=== PATIENT | male | born 1935 | race Caucasian/White ===

== ENCOUNTER → 2016-06-12 14:20 | Outpatient (CLI) | payer MEDICARE, OTHER ==
[2012-08-23 11:13] VITALS: BMI 23.1
[~2016-06-12 14:20] MED LIST: ALEVE220 MG PO; BAYER CHEWABLE81 MG PO; COZAAR50 MG PO; ELIQUIS5 MG PO; FOLIC ACID1 MG PO; HYDRALAZINE HCL50 MG PO; HYDROCODON-ACE1 EAC7 PO; METHOTREXATE2.5 MG PO; MULTIPLE VITAMI1 TA1 PO; PLAVIX75 MG PO; PRESERVISION AR1 CAP PO; TOPROL XL25 MG PO
[2016-07-10 18:32] VITALS: BMI 24.3
== END | disposition home or self-care (01) ==
LOC: D.CT 14:20
DX: R09.89 Other specified symptoms and signs involving the circulatory and respiratory systems (principal)

== ENCOUNTER 2016-06-19 05:39 | Inpatient (IN) | payer MEDICARE, OTHER ==
[2016-06-19] VITALS (21 sets, daily range): BP systolic 109–172; BP diastolic 41–77; Ht 180.3 cm; Wt 81.1 kg
[~2016-06-19] VITALS: Ht 180.3 cm; Wt 81.1 kg
[2016-06-19] MEDS ORDERED: PLAVIX75 MG PO (08:18)
[2016-06-19] MEDS ORDERED: BAYER CHEWABLE81 MG PO (08:19)
[2016-06-19] MEDS ORDERED: TOPROL XL25 MG PO (08:19)
[2016-06-19] MEDS ORDERED: METHOTREXATE2.5 MG PO (08:20)
[2016-06-19] MEDS ORDERED: MULTIPLE VITAMI1 TA1 PO (08:20)
[2016-06-19] MEDS ORDERED: FOLIC ACID1 MG PO (08:21)
[2016-06-19] MEDS ORDERED: ALEVE220 MG PO (08:23)
[2016-06-19] MEDS ORDERED: HYDROCODON-ACE1 EAC7 PO (08:23)
[2016-06-19 08:40] LABS: HEMATOCRIT 42.4 % (42.0-54.0); HEMOGLOBIN 14.7 g/dL (13.5-17.5); MCH 34.4 pg (26.0-34.0); MCHC 34.7 g/dL (31.0-37.0); MCV 99.3 fL (80.0-100.0); MEAN PLATELET VOLUME 11.9 fL (7.4-10.4); RBC 4.27 10x6/uL (4.20-6.10); WBC 4.2 10x3/uL (4.8-10.8)
[2016-06-19 08:50] LABS: APTT 26.6 SECONDS (22.8-39.4)
[2016-06-19 08:54] LABS: ALBUMIN 3.9 g/dL (3.4-5.0); BILIRUBIN - TOTAL 0.91 mg/dL (0.2-1.3); CALCIUM 9.2 mg/dL (8.5-10.1); CARBON DIOXIDE 30.5 mmol/L (21.0-32.0); CREATININE - SERUM 1.2 mg/dL (0.6-1.3); POTASSIUM - SERUM 4.5 mmol/L (3.5-5.1); PROTEIN - SERUM 7.1 g/dL (6.4-8.2)
[2016-06-19 09:18] LABS: APPEARANCE CLEAR (CLEAR); COLOR YELLOW (YELLOW); GLUCOSE NEGATIVE (NEGATIVE); KETONE NEGATIVE (NEGATIVE); LEUKOCYTE ESTERASE NEGATIVE (NEGATIVE); NITRITE NEGATIVE (NEGATIVE); PROTEIN 1+ mg/dL (NEGATIVE)
[2016-06-19 09:19] LABS: BILIRUBIN NEGATIVE (NEGATIVE); EPITHELIAL CELLS RARE /hpf (0-5); MUCUS <1+ /lpf (NONE SEEN); UROBILINOGEN NORMAL (NORMAL)
--- NOTE | 2016-06-19 09:21 | NUR ---
0915 RT LEG REDDENNED PULSES WITH DOPPLER
--- NOTE | 2016-06-19 09:29 | NUR ---
0929 REPORTED TO SHANTEL SMITH NURSE OF B/P DIFFERENCES AND RT LEG VERY RED PULS WITH DOPPLER. ALSO REPORTED LABS WBC 4.2 PROT 1 PLUS URINE. STATED TO NOTIFY ANESTHESIA. ANESTHESIA CALLED TO REPORT DIFFERENCES IN B/P AND DID NOT TAKE BETA REG THIS AM.
--- NOTE | 2016-06-19 09:34 | NUR ---
[address] VALDEZ OF B/P DIFFERENCES REDDENED LEG AND GOT PULSES WITH DOPPLER AND ALSO REPORTED DID NOT TAKE HIS BETA REG THIS AM. NO NEW ORDERS.
--- NOTE | 2016-06-19 14:56 | NUR ---
PT ARRIVED TO UNIT AT 1418. PT C/O PAIN IN HEEL. KICKED O2 TANK ON WAY FROM OR. HAD NIKKY HOSE AND SCD'S ON AT ARRIVAL. PULSE ON RIGHT DORSALIS NOT PALPABLE OR FOUND WITH DOPPLER. DR SMYTH REQUESTED NIKKY AND SCD'S REMOVED. PT COMPLAINING OF PAIN DIMINISHED AFTER REMOVAL. PT IS ALERT AND CONVERSANT. ORIENTED. HAS CRITICORE ONIEL. HR 68, IRREGULAR. CVP 15, BP 109/41 ARTLINE, 02 100% ON 10L SIMPLEMASK CHANGED OVER TO NC AT 3L AND SATS 98%. RESP 14. TEMP 37.3C. PT HAS DRESSING RIGHT NECK, NO SWELLING NOTED. BIJAL DRAIN AT UPPER CHEST/NECK. DRESSING INTACT, BULB COMPRESSED. HAS LEFT RADIAL ART LINE. HOB AT 35. PLASMALYTE AT 100ML/HR.
--- NOTE | 2016-06-19 16:06 | NUR ---
DR BOOTH CAME BY TO SEE PATIENT. SAYS NOT AFIB. HAS PAC'S AND PVC'S. INSTRUCTS TO MONITOR AND LET KNOW IF ANYTHING CHANGES. PT SYSTOLIC BECAME ELEVATED. RESTARTED NITRO DRIP AT 9ML/HR.
--- NOTE | 2016-06-19 16:23 | NUR ---
Patient Name: AALIYAH CONNORS Admission Status: Elective Accout number: [id number] Admission Date: 06-19-2016 : 1937 Admission Diagnosis: Attending: LEA Current LOS: 1 Anticipated DC Date: 06-20-2016 Planned Disposition: Home Primary Insurance: MEDICARE A & B Is the patient Alert and Oriented? Yes--SEDATED POST PROCEDURE, BUT AROUSES. * How many steps to enter\exit or inside your home? ONE * PCP DR BECKER * Pharm[facility] [address] * Preadmission Environment Home with Family * ADLs Independent * Equipment Cane Other * Other Equipment GRAB BARS IN SHOWER * List name and contact numbers for known caregivers / representatives who currently or will assist patient after discharge: SAMINA CONNORS, SPOUSE, CELL * Community resources currently utilized None * Additional services required to return to the preadmission environment? No * Can the patient safely return to the preadmission environment? Yes * Has this patient been hospitalized within the prior 30 days at any hospital? No Discharge Planning Comments: CM MET WITH PATIENT AND HIS TO ASSESS DC PLAN/NEEDS. ANSWERED ALL QUESTIONS, PT WAS SOMEWHAT SEDATED POST PROCEDURE. PT'S STATED THAT MR CONNORS LIVES AT HOME WITH HER AND THAT HE IS INDEPENDENT IN HIS CARE/ADL'S. STATED THAT HE TYPICALLY AMBULATES WITH NO ASSISTANCE, BUT THAT HE ALSO USES A CANE WHEN WALKING LONG DISTANCES. SPOUSE STATED PT TYPICALLY DRIVES HIMSELF, BUT THAT SHE WILL DRIVE HIM HOME AT DISCHARGE. STATED PT HAS USED HH SERVICES IN 2010 AFTER A KNEE SURGERY, BUT SHE DOES NOT FEEL PATIENT WILL REQUIRE ANY HH SERVICES AT DISCHARGE. SHE VOICED NO NEED FOR ANY ADDITIONAL DME AT DISCHARGE. SHE STATED THAT PT'S HOME IS SAFE PLACE AND PLAN IS FOR PATIENT TO RETURN HOME AT DISCHARGE. SPOUSE VOICED NO DISCHARGE NEEDS AT THIS TIME. CM WILL FOLLOW AND ASSIST WITH ANY DC NEEDS THEY ARISE. Dairy Cattle Farmer: Janelle Randolph RN, CM
--- NOTE | 2016-06-19 17:30 | NUR ---
PT ATE 100% DINNER. NO COMPLAINTS VOICED. BROUGHT UP HIS PARTIAL PLATE. CALL LIGHT IN REACH.
--- NOTE | 2016-06-19 18:00 | NUR ---
PT HAS ORDERS FOR CONSULT FOR DR BECKER. NO NOTATION OF CONFIRMATION. ANSWERING SERVICE CALLED. DR LUJAN SWITCH FOREMAN TODAY. PAGED.
--- NOTE | 2016-06-19 18:15 | NUR ---
PT SYSTOLIC NOW IN 120'S. NITRO WEANED OFF.
--- NOTE | 2016-06-19 19:40 | NUR ---
ASSESSMENT COMPLETED. SEE ASSESSMENT FLOWSHEET. AWAKENS EASILY TO VOICE. ORIENTED X4. GOULD WELL. RT MIMS OF LEG WITH SOME REDNESS AND SCABS NOTED. LEFT RADIAL A-LINE INTACT W/ FELXION BOARD. CAP REFILL <3 SECONDS. DENIES ANY PAIN. RT NECK INCISION C/D/I WITH BROWN SQUARE DRSG. RT UPPER CHEST AREA BIJAL DRAIN SITE LOCATION C/D/I. BIJAL WITH MINIMAL BLOODY DRAINAGE-COMPRESSED. SINUS BRADYCARDIA ON THE MONITOR WITH PAC/PVC'S NOTED. DAY SHIFT RN REPORTED NO SCD' OR TEDS DUE TO NOT BEING ABLE TO FIND A PALPABLE PULSE TO RT PEDAL AREA EARLIER. WILL MONITOR.
--- NOTE | 2016-06-19 20:50 | NUR ---
NEURO ASSESSMENT COMPLETED. NO CHANGES NOTED. AWAKENS WITHOUT DIFFICULTY.
--- NOTE | 2016-06-19 21:46 | NUR ---
NEW ICE FOR ICE PACK GIVEN AND NEW CUP OF WATER PER RQUEST. DENIES TO BE TURNED IN BED. I.S. COMPLETED UP TO 2,000ML. WILL CONTINUE TO MONITOR.
--- NOTE | 2016-06-19 22:00 | NUR ---
INCREASED NITRO TO 8ML/HR TO KEEP SBP <140MMHG. WILL MONITOR.
--- NOTE | 2016-06-19 23:17 | NUR ---
REASSESSMENT COMPLETED. SEE ASSESSMENT FLOWSHEET. NEURO INTACT. WILL MONITOR.
[2016-06-20] VITALS (58 sets, daily range): BP systolic 98–159; BP diastolic 44–78
--- NOTE | 2016-06-20 01:20 | NUR ---
IV FLUIDS DECREASED TO 30ML/HR ORDERED. INCREASED NITRO TO 15 ML/HR TO KEEP SBP <140. WILL MONITOR.
--- NOTE | 2016-06-20 01:56 | NUR ---
NEURO CHECK COMPLETED. NO NEURO DEFICITS. REPORTIGN SORE PAIN TO RT NECK. WHEN OFFERED, DOES WANT ALEVE TABLET. TABLET GIVEN. DECREASED NITRO TO 13ML/HR. WILL MONITOR.
--- NOTE | 2016-06-20 03:20 | NUR ---
REASSESSMENT COMPLETED. SEE ASSESSMENT FLOWSHEET. 12-LEAD EKG DONE TO DETERMINE IF IN JUNCTIONAL RHYTHM OR ANY HEART BLOCK. NOT NOTED. AWAKE, ALERT, ORIENTED X4. GOULD WELL. EMPTIED BIJAL DRAIN-10ML OF BLOODY DRAINAGE REMOVED. WILL MONITOR.
--- NOTE | 2016-06-20 04:38 | NUR ---
INCREASED NITRO TO 25ML/HR. WILL MONITOR.
--- NOTE | 2016-06-20 06:25 | NUR ---
BIJAL DRAIN REMOVED PER EDIN MARIE. NITRO GTT TITRATED DOWN. TOLERATED WELL. WILL MONITOR.
--- NOTE | 2016-06-20 06:35 | NUR ---
DR. SMYTH INFORMED OF 12-LEAD EKG DONE DURING THE NIGHT. ORDERS TO START REMOVING LINES THIS AM. WILL MONITOR.
--- NOTE | 2016-06-20 11:55 | OP ---
PATIENT NAME: AALIYAH CONNORS MEDICAL RECORD: [id number] :37 [facility] ADMISSION DATE:06/19/16 SURGEON: VINICIUS SMYTH MD DATE OF OPERATION: 06/19/2016 SURGEON: Vinicius Smyth MD ANESTHESIA: General endotracheal, Dr. Burrows. OPERATION PERFORMED: Right carotid endarterectomy with patch angioplasty. PREOPERATIVE DIAGNOSIS: Critical right internal carotid artery stenosis. POSTOPERATIVE DIAGNOSIS: Critical right internal carotid artery stenosis. INDICATION FOR OPERATION: Critical symptomatic right internal carotid artery stenosis. FINDINGS AT OPERATION: Severe right internal carotid artery stenosis with ulcerative plaque as well as soft clot. There were no EEG changes with clamping or unclamping of the carotid artery. ESTIMATED BLOOD LOSS: Less than 100 cc. DESCRIPTION OF PROCEDURE: After informed consent, adequate preoperative medication evaluation, the patient was brought to the operating room, placed on the table in the supine position. After induction of general endotracheal anesthesia and application of appropriate monitoring devices, the chest, neck, abdomen, and both legs were prepped and draped in a sterile field, utilizing Betadine scrub, alcohol, and Betadine solution. Betadine-impregnated drape was also used. An oblique incision was made in the skin crease. Dissection carried down the fascia. Hemostasis maintained with electrocautery. The facial vein was identified and divided. Utilizing sharp dissection, the common carotid, internal and external carotid arteries were dissected free from surrounding structures, protecting the neurological structures. The patient was given a calculated dose of heparin and after 3 minutes, clamps were applied. After 2 minutes, no EEG changes. The arteriotomy was made and extended with Dickey scissors. Artery underwent endarterectomy sharply. Artery underwent extensive debridement and irrigation. Utilizing a vascular patch and running 7-0 Prolene suture, the arteriotomy was closed with patch angioplasty technique. All maneuvers to remove trapped air were performed. The clamps were removed sequentially. There were no EEG changes. The patient was given a calculated dose of protamine to reverse the heparin. Hemostasis was achieved. A #7 Alex-Omalley drain was left in the depth of wound and brought through the base of the neck. Neck was again irrigated. Instrument count and sponge count were correct times 2. Neck was closed in layers utilizing 3-0 Vicryl on the platysma, 5-0 subcuticular Monocryl on the skin. Sterile dressings were applied and the instrument count and sponge counts were correct times 2. The patient was transferred to cardiovascular recovery in satisfactory condition. TRANSINT:[id number] Voice Confirmation ID: [id number] DOCUMENT ID: [id number] OPERATIVE REPORT [id number] AALIYAH CONNORS EDWARD MD at 1155 CC: [id number] DICTATION DATE: 06/19/16 1416 SPICE ROOM WORKER: 06/19/162024 [place] [address]
--- NOTE | 2016-06-20 11:55 | HP ---
PATIENT: AALIYAH CONNORS MEDICAL RECORD: [id number] ACCOUNT: [id number] [facility] ADMISSION DATE: 06/19/16 HISTORY AND PHYSICAL EXAMINATION AALIYAH Fraga (80yo, M) ID# [id number]. Date/Time06/17/2016 01:[id number] 1935Service Dept.[facility]_[place] [facility] ClinicProviderEDILEANA SMYTH MDInsuranceMed Primary: [place]) Insurance # : [id number] Referring Provider Name : TERRIE BECKER Employer Name : RETIRED Med Secondary: [employer] (MEDICARE SUPPLEMENT) Insurance # : [id number] Referring Provider Name : TERRIE BECKER Employer Name : RETIRED Prescription: ARGSDIR - Member is eligible. Chief Complaint Carotid stenosis Patient's Care Team Referring Provider (): TERRIE BECKER: [address] [place] [phone], , Other: LIUDMILA YODER MD: [address] [place] [address], , Patient's Pharmacies [facility] (ERX): [address] [place] [id number], , Vitals BP:160/80 sitting R arm 06/17/2016 01:07 pm 172/82 sitting L arm 06/17/2016 01:08 pmBP Cuff Size:adult 06/17/2016 01:07 pm adult 06/17/2016 01:08 pmHR:82, irreg 06/17/2016 01:09 pmHt:5 ft 11 in 06/17/2016 01:02 pmNotes:on Tuesday 06/06 woke up dizzy and had difficulty walking and getting around. Ended up having a fall Saturday 06/[address] Yoder, and after exam proceeded to CTA carotids. S florencio then he has had a couple of "weak spells" during which he feels weak, dizzy and groggy. 06/17/2016 01:13 pmAllergies Reviewed Allergies CRESTORLIPITORPRAVASTATINMedications Reviewed Medications Aleve every am and pm, start filledAtrium Health Mountain Islandmarialuisa Mcfaddenaspirin 81 mg tablet,delayed release Take 1 tablet(s) every day by oral route., start filledKatmarialuisa WilsonFluzone High-Dose (PF) 180 mcg/0.5 mL intramuscular syringe ADM 0.5ML IM UTD105/05/15 filledsurescriptsfolic acid 1 mg hpfhpy97/16/17 filledArgBlueSpace Health SystemsmetHOTREXate sodium 2.5 mg pvwkco76/09/17 filledArgKLD Energy Technologies Systemsmetoprolol succinate ER 25 mg tablet,extended release 24 hr Take 1 tablet(s) every day by oral route.03/20/16 filledArgus Health Tonqzbclzhaprpjbomf44/14/17 enteredE[facility] WilsonPreserVision AREDS06/17/16 enteredE[facility] BogdanPrevnar 13 (PF) 0.5 mL intramuscular aqtoetj94/23/15 filledsurescriptsProblems Reviewed Problems Aortic valve disorder 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 Carotid artery stenosis - Onset: 06/16/2016, Bilateral Family History Discussed Family History HISTORY AND PHYSICAL [id number] AALIYAH CONNORS Non-contributory.Father- (onset age: 32) - WWIIMother- Malignant neoplastic disease ( age: 88)Social History Discussed Social History Cardiology Family history of heart disease?: N Smoking Status: Former smoker Non-smoker High Cholesterol: Y High blood pressure: Y Exercise level: None Diabetes: N Alcohol intake: Occasional Occupation: retired Marital status: Is blood transfusion acceptable in an emergency?: Y Tobacco-years of use: 25 Surgical History Reviewed Surgical History CABG - 08/22/2012 - CABG/AVR W TISSUE VALVE Shoulder arthroscopy with rotator cuff repair - 04/28/2012 Other - 04/2006 LEFT SHOULDER SURGERY, CATARACT SURGERY, LEFT KNEE REPLACEMENT Past Medical History Discussed Past Medical History Blood Clots: Y Heart Disease: Y Heart Murmur: Y High Blood Pressure: Y Hyperlipidemia: Y Hypertension: Y Pain in legs when walking: Y Swelling of Ankles, Feet or Hands: Y Valve disease: Y - AVR 08/22/12 Notes: CAROTID ARTERY STENOSIS Documents for Discussion N/A Screening None recorded. HPI Cerebral Vascular Disease Reported by patient. Quality: weakness; dizziness; staggering gait bilateral Severity: mild loss of strength; interference with daily activities; moderate Duration: started 12 days ago Onset/Timing: intermittent; weekly Aggravating Factors: activity Associated Symptoms: palpitations; syncope recent episodes of dizziness and disorientation ROS Patient reports exercise intolerance but reports no fever, no night sweats, no significant weight gain, and no significant weight loss. He reports known heart murmur (PROSTHETIC) but reports no chest pain, no arm pain on exertion, no HISTORY AND PHYSICAL [id number] AALIYAH CONNORS shortness of breath when walking, no shortness of breath when lying down, and no palpitations. He reports arthralgias/joint pain but reports no muscle aches, no muscle weakness, no back pain, and no swelling in the extremities. He reports weakness and dizziness but reports no loss of consciousness, no numbness, no seizures, and no headaches. He reports no dry eyes, no irritation, and no vision change. He reports no difficulty hearing and no ear pain. He reports no frequent nosebleeds and no nose/sinus problems. He reports no sore throat, no bleeding gums, no snoring, no dry mouth, no mouth ulcers, no oral abnormalities, and no teeth pro b lems. He reports no cough, no wheezing, no shortness of breath, and no coughing up blood. He reports no abdominal pain, no vomiting, normal appetite, no diarrhea, not vomiting blood, no nausea, and no constipation. He reports no incontinence, no difficult y urinating, no hematuria, and no increased frequency. He reports no abnormal mole, no jaundice, and no rashes. He reports no depression, no sleep disturbances, feeling safe in relationship, and no alcohol abuse. He reports no fatigue. He reports no swolle n glands and no bruising. He reports no runny nose, no sinus pressure, no itching, no hives, and no frequent sneezing. ROS as noted in the HPI Physical Exam Patient is a 80-year-old male. Constitutional: General Appearance well nourished and developed and healthy-appearing. Level of Distress NAD. Ambulation ambulating normally. Cardiovascular: Apical Impulse not displaced or no thrill. Heart Auscultation normal s1 and s2, no rubs or gallops, and RRR and murmur (PROSTH). Arterial Pulses no abdominal aorta bruits, femoral bruits, or popliteal bruits and 2+ bilateral, carotid 2+ bilateral, femoral 2+ bilateral, popliteal 2+ bilateral, and dorsalis pedis 2+ bilateral. Edema no edema or varicosities. Lungs: Repiratory Effort no dyspnea. Percussion no hyperresonance or dullness or flatness. Auscultation no wheezing, rhonchi, or rales / crackles and breathing sounds normal, good air movement, and CTA except as noted. Abdomen: Bowl Sounds normal. Inspection and Palpation no tend erness, guarding, masses, or rebound tenderness and soft and non-distended. Liver non-tender and no hepatomegaly. Spleen non-tender and no splenomegaly. Hernia none palpable. Ears, Nose, Throat: Hearing grossly normal hearing. Nose no external nose lesion . Lips, Teeth, and Gums no mouth or lip ulcers. Oropharynx: moist mucous membranes. Musculoskeletal System: Gait And Stance normal gait and stance. Digits and Nails normal nails and no cyanosis. Joints, Bones, and Muscles limited ROM. Neurologic: Cranial Nerves grossly intact. Reflexes DTRs 2+ bilaterally throughout. Sensation grossly intact. Lymph Nodes: Lymph Nodes no cervical LAD, supraclavicular LAD, axillary LAD, or inguinal LAD. Eyes: Lids and Conjunctivae no discharge or pallor and non-injected. Pupils PERRLA. Cornea grossly intact. EOM EOMI. Lens clear. Sclerae non-icteric. Neck: Neck no masses or enlarged lymph nodes and supple, trachea midline, and carotid bruits (can not tell the difference between a transmitted cardiac murmur or bilateral carotid bruits). Thyroid no enlargement or nodules and non-tender. HISTORY AND PHYSICAL [id number] AALIYAH CONNORS Skin: Inspection and Palpation no rash, lesions, ulcers, jaundice, or abnormal nevi. Assessment / Plan severe bilateral carotid artery stenosis right greater than the left 1. Carotid artery stenosis - Bilateral I65.23: Occlusion and stenosis of bilateral carotid arteries CAROTID STENOSIS: CARE INSTRUCTIONS Discussion Notes I have discussed his disease process with him and his in detail as well as the alternative methods of treatment. We discussed right carotid endarterectomy including the expected benefits and risk which included bleeding infection stroke and . They understand all of the above and wished to proceed with planned procedure. Return to Office Joseluis Smyth MD for Surgery at [facility] SCHEDULE on 06/19/2016 at 08:30 AM Joseluis Smyth MD for Office Visit [address] [facility] on 12/31/2016 at 09:15 AM to see Joseluis Smyth MD at [facility] on or around 01/01/2017 JOSELUIS SMYTH MD at 1155 CC: [id number] DICTATION DATE: 06/17/16 1315 BRAND ATTENDANT: DM 06/18/16 1430 ADM IN [place] [id number] [place] [address]
--- NOTE | 2016-06-20 15:05 | NUR ---
FAMILY AT BEDSIDE. NO CURRENT NEEDS.
--- NOTE | 2016-06-20 15:43 | NUR ---
DR. SMYTH NOTIFIED OF PT'S CONCERN THAT HIS SPEECH IS SLURRED. NO SLURRING NOTED. NEURO EXAM UNCHANGED SINCE 1500. TRACHEA MIDLINE. TONGUE MIDLINE. NO NEW ORDERS.
--- NOTE | 2016-06-20 19:00 | NUR ---
AMBULATED SELF FROM CHAIR TO BED WITHOUT DIFFICULTIES DURING SHIFT CHANGE REPORT.
--- NOTE | 2016-06-20 19:30 | NUR ---
SHIFT ASSESSMENT COMPLETED. SEE ASSESSMENT FLOWSHEET. RT NECK DRSG COMING OFF. PLACED TEAGDERM ON TOP OF BROWN DRSG. SITE WNL WITHOUT SWELLING. ON ROOM AIR. NSR WITH FREQUENT PVC'S NOTED. HR IN THE 70'S. RT UPPER CHEST DRSG TO OLD BIJAL DRAIN SITE C/D/I. ABDOMEN SOFT AND ACTIVE BOWEL SOUNDS. NOT YET VOIDED SINCE ENGLE CATHETER D/C'ED THIS AM. ENCOURAGED TO TRY IN A HOUR TO URINATE. RT LOWER LEG WITH SCABS AND SLIGHTLY RED IN COLOR. TRACE EDEMA TO LE'S BILATERALLY. HANDS NOTED TO HAVE A SLIGHT SKELETAL DEFORMITY BUT FUNCTIONAL. HAND GRASPS STRONG AND EQUAL BILATERALLY. DORSI-PLANTAR FLEXION STRONG/EQUAL. PUPILS PERRLA. SMILE SYMMETRICAL. SEE NEURO CHECKS. WILL CONTINUE TO MONITOR.
--- NOTE | 2016-06-20 21:10 | NUR ---
ENCOURAGED TO TRY TO VOID SINCE NOT VOIDING SINCE CATHETER OUT. WITH STANDING, VOIDED 350ML OF CLEAR, MIO URINE. BACK TO BED. WILL MONITOR B/P CLOSELY FOR POSSIBLE RESTART OF NITRO. WILL MONITOR.
--- NOTE | 2016-06-20 22:14 | NUR ---
NITRO GTT STARTED TO KEEP SBP <140MMHG. NITRO STARTED AT 5ML/HR.
--- NOTE | 2016-06-20 23:20 | NUR ---
NITRO INCREASED TO 7ML/HR TO KEEP SBP <140MMHG. WILL MONITOR.
--- NOTE | 2016-06-20 23:34 | NUR ---
REASSESSMENT COMPLETED WHILE AWAKE. ASKING FOR BLANKET ON HIM, OBLIGED. NO FEVER NOTED. NO ACUTE CHANGES IN ASSESSMENT, SEE FLOWSHEET.
[2016-06-21] VITALS (29 sets, daily range): BP systolic 107–159; BP diastolic 56–91
--- NOTE | 2016-06-21 01:00 | NUR ---
NITRO GTT TURNED OFF FOR SBP 110. WILL MONITOR.
--- NOTE | 2016-06-21 01:32 | NUR ---
IV PROTONIX GIVEN. TURNED SELF TO RT SIDE. CHANGED NIBP'S TO TAKE EVERY HOUR NOW. REPORTED HE NOTICED HIS BLOOD PRESSURE GETTING LOWER. INFORMED MEDICATION TO LOWER B/P HAS BEEN TURNED OFF. DENIES NEEDS. WILL MONITOR.
--- NOTE | 2016-06-21 02:40 | NUR ---
EYES CLOSED. LAYING ON RT SIDE. NSR WITH FREQUENT PVC'S ON THE MONITOR. NO ACUTE DISTRESS NOTED. WILL MONITOR.
--- NOTE | 2016-06-21 03:50 | NUR ---
REASSESSMENT COMPLETED. SEE ASSESSMENT. RT NARE NOTED TO HAVE A SCANT AMOUNT OF BLOODY DRAINAGE. CLEANSED NARE AND TISSUES GIVEN. NO NEURO DEFICITS. DENIES PAIN. WILL CONTINUE TO MONITOR.
--- NOTE | 2016-06-21 05:30 | NUR ---
ASSISTED UP TO BEDSIDE CHAIR AFTER URINATING INTO URINAL. WILL MONITOR.
--- NOTE | 2016-06-21 10:50 | CN ---
PATIENT NAME:AALIYAH CONNORS MEDICAL RECORD: [id number] : 37 LOCATION:[facility] ADMIT DATE: 06/19/16 ACCOUNT: [id number] CONSULTING PHYSICIAN: DEBBY DE LA GARZA MD REFERRING PHYSICIAN: JOSELUIS SMYTH MD DATE OF CONSULTATION: 06/20/2016 DATE OF ADMISSION: 06/18/2016 REASON FOR CONSULTATION: Medical management. HISTORY OF PRESENT ILLNESS: The patient is a 80-year-old gentleman who has recently experienced some dizziness on June 06. He stated this started on Wednesday and continued on Wednesday. He went to see Dr. Yoder who had referred him for a carotid Doppler. The patient was found to have stenosis of the right carotid artery. He was therefore referred to Dr. Smyth. Dr. Smyth admitted the patient for right carotid endarterectomy. PAST MEDICAL HISTORY: Significant that he has had a quadruple bypass by Dr. Milian 16 years ago. He has also had aortic valve replaced by Dr. Smyth in the recent past. His history is significant that he has had rheumatoid arthritis, also has had hyperlipidemia, but is intolerant of statins. FAMILY HISTORY: His father of an MVA. Mother of female cancer at age 77. ALLERGIES: HE IS ALLERGIC TO ATORVASTATIN, LIPITOR, CRESTOR AND PRAVACHOL. MEDICATIONS: Include methotrexate 2.5 seven tablets every , also is on Plavix 75 mg once a day, metoprolol succinate 25 mg p.o. daily, hydrocodone 5/325 one every 4 hours p.r.n. severe pain, aspirin 81 mg once a day, tramadol 50 mg 1 every 6 hours p.r.n. severe pain and folic acid 1 mg everyday. HABITS: None. REVIEW OF SYSTEMS: CONSTITUTIONAL: He denies any headaches, seizures, or syncope. Denies change in visual or auditory acuity. PULMONARY: He denies any shortness of breath, cough, or congestion, history of TB, asthma, or bronchitis. CARDIOVASCULAR: He is having no chest pain, palpitation, PND, or orthopnea. GASTROINTESTINAL: No chronic nausea, vomiting, melena, or hematochezia. GENITOURINARY: No urgency, frequency, or dysuria. PHYSICAL EXAMINATION: GENERAL: The patient is sitting up in a chair in the ICU postop day #1 from right carotid endarterectomy. The patient is doing well. He is alert and oriented times 3. Cranial nerves II through XII are intact. NECK: Supple. There is no adenopathy. HEART: Has a regular rhythm. No murmurs, gallops, or rubs. LUNGS: Clear. ABDOMEN: Soft, bowel sounds positive. No organomegaly. EXTREMITIES: Lower extremities have no edema. LABORATORY DATA: Patient preoperatively had a white count of 4.2, his CONSULT REPORT [id number] DORYAALIYAH Karma hemoglobin is 14.7, hematocrit is 42.4 and his platelets were 139. His potassium was 4.5, his chloride was 101. His sodium was 138, BUN 17 and creatinine is 1.2. Urinalysis was unremarkable. INR was 1.0. ASSESSMENT: 1. Status post right carotid endarterectomy, doing well. 2. History of coronary artery bypass grafting some 16 years ago, status post aortic valve replacement, history of hyperlipidemia and rheumatoid arthritis. PLAN: The patient appears to be progressing well. We will continue to follow along with you. Thanks for the consultation. TRANSINT:[id number] Voice Confirmation ID: [id number] DOCUMENT ID: [id number] DEBBY DE LA GARZA MD at 1050 CC: [id number] DICTATION DATE: 06/20/16 1049 TERRAZZO ROLLER: 06/20/16 1326 ADM IN [place] [id number] [place] [id number]
--- NOTE | 2016-06-21 12:20 | NUR ---
DR. SMYTH AT BEDSIDE DISCUSSING DC HOME.
--- NOTE | 2016-06-21 12:49 | NUR ---
LEFT SUBCLAVIAN CVL DC'D CATH FULLY INTACT. MANUAL PRESSURE APPLIED TIMES 5 MINUTES. CLEAR DRESSING APPLIED. PT PREPARING FOR DC HOME.
--- NOTE | 2016-06-21 13:30 | NUR ---
DC INSTRUCTIONS REVIEWED WITH PT AND . NO CURRENT QUESTIONS. PT DC'D HOME WITH VIA WHEELCHAIR.
== END 2016-06-21 13:30 | disposition home or self-care (01) | DRG 39 ==
LOC: D.SDCHOLD 05:39 → D.CVICU 07:28 → D.SDCHOLD 07:28 → D.CVICU 13:23
PROVIDERS: ADMIT Internal Medicine Cardiovascular Disease
PROC: 03UK0JZ Supplement Right Internal Carotid Artery with Synthetic Substitute, Open Approach (ICD-10-PCS; 2016-06-19)
PROC: 03CK0ZZ Extirpation of Matter from Right Internal Carotid Artery, Open Approach (ICD-10-PCS; principal; 2016-06-19 09:30)
DX: I65.23 Occlusion and stenosis of bilateral carotid arteries (principal); M06.9 Rheumatoid arthritis, unspecified; I10 Essential (primary) hypertension; I49.1 Atrial premature depolarization; E78.5 Hyperlipidemia, unspecified

== ENCOUNTER → 2016-07-09 15:01 | Outpatient (CLI) | payer MEDICARE, OTHER ==
[2016-06-19 17:25] VITALS: BMI 24.9
== END | disposition home or self-care (01) ==
LOC: D.CT 15:01
DX: I99.8 Other disorder of circulatory system (principal)

== ENCOUNTER 2016-07-10 08:12 | Inpatient (IN) | payer MEDICARE, OTHER ==
[~2016-07-10] VITALS: Ht 180.3 cm; Wt 80.7 kg
[2016-07-10] VITALS (44 sets, daily range): BP systolic 81–146; BP diastolic 38–80; Ht 180.3 cm; Wt 80.7 kg
--- NOTE | ~2016-07-10 | HEMODYNAMI ---
PATIENT:AALIYAH CONNORS MEDICAL RECORD: [id number] : 37 [facility] ADMISSION DATE: 07/10/16 Generatedon:07/14/201613:22 Patient name: AALIYAH CONNORS Patient #: [id number] SSN: D OB: 1935 Date of study: 07/14/2016 Page: Of Hemodynamic Procedure Report Patient Data Patient Demographics Procedure consent was obtained First Name: AALIYAH Gender: Male Last Name: DORY : 1935 Middle Initial: C Age: 80 year(s) Patient #: [id number] Race: Unknown Additional ID: [id number] Contact details [address]: [address] [place] [address] [address] State: [place] City: [place] Zip code: [address] Admission Admission Data Admission Date: 07/10/2016 Admission Time: 8:12 Room #: [facility] Procedure Procedure Types Cath Procedure Peripheral Cath Diagnostic Procedure Miscellaneous Procedure Description Procedure Date Procedure Date: 07/14/2016 Procedure Start Time: 11:04 Procedure Staff Name Function Damion Holder MD Performing Physician Conchita Meneses RT Scrub Mona Heller RN Nurse Marcio Meza RT Monitor Ayush Palafox MD Additional personnel Procedure Data Cath Procedure Fluoroscopy Diagnostic fluoroscopy Total fluoroscopy Time: time: 26.5 min 26.5 min Diagnostic fluoroscopy Total fluoroscopy dose: 116 dose: 116 mGy mGy Contrast Material Contrast Material Type Amount (ml) Isovue 300 45 Entry Location Entry Primary Successful Side Size (Fr) Upsize Upsize Entry Closure S uccessful Closure Location 1 (Fr) 2 (Fr) Remarks Device Remarks Femoral Left 7 Fr artery Mid-Length Diagnostic catheters Device Type Used For End Catheter Placement Diagnostic 5Fr IMT Catheter Procedure Medications Medication Administration Route Dosage Heparin Flush Bag added to field 2 bags (1000units/500ml NS) Lidocaine 1% added to field 20 Heparin Bolus I.V. 4000 units Heparin Bolus I.V. 2000 units Hemodynamics Rest Heart Rate: 79 (bpm) Snapshots Pre Cath Intra NCS Post Cath Vital Signs Time Heart Resp SPO2 NIBP (mmHg) Rhythm Pain Sedation Rate (ipm) (%) Status Level (bpm) 10:53:34 82 14 99 156/89(143) NSR 0 (11) 10(A) , No pain 10:58:33 77 20 100 Measuring NSR 0 (11) 10(A) , No pain 10:58:37 77 20 100 167/116(135) NSR 0 (11) 10(A) , No pain 11:02:55 76 21 100 131/77(109) NSR 0 (11) 10(A) , No pain 11:07:03 78 29 99 147/98(121) NSR 0 (11) 10(A) , No pain 11:11:29 75 16 98 105/58(75) NSR 0 (11) 10(A) , No pain 11:15:33 77 19 98 101/55(73) NSR 0 (11) 10(A) , No pain 11:19:43 78 19 98 102/51(71) NSR 0 (11) 10(A) , No pain 11:23:55 85 18 98 72/45(63) NSR 0 (11) 10(A) , No pain 11:28:54 73 16 97 Measuring NSR 0 (11) 10(A) , No pain 11:28:58 83 17 97 94/44(64) NSR 0 (11) 10(A) , No pain 11:33:06 81 18 97 93/50(62) NSR 0 (11) 10(A) , No pain 11:37:05 76 19 97 99/74(85) NSR 0 (11) 10(A) , No pain 11:41:15 80 16 97 101/48(67) NSR 0 (11) 10(A) , No pain 11:45:21 76 17 98 103/63(81) NSR 0 (11) 10(A) , No pain 11:49:31 73 17 97 91/53(66) NSR 0 (11) 10(A) , No pain 11:53:35 76 16 97 87/53(70) NSR 0 (11) 10(A) , No pain 11:57:36 74 16 97 95/57(76) NSR 0 (11) 10(A) , No pain 12:01:42 75 16 97 90/51(68) NSR 0 (11) 10(A) , No pain 12:05:46 77 16 97 86/54(64) NSR 0 (11) 10(A) , No pain 12:10:35 75 16 97 100/56(77) NSR 0 (11) 10(A) , No pain 12:14:45 75 16 97 90/51(66) NSR 0 (11) 10(A) , No pain 12:19:34 73 15 97 96/59(78) NSR 0 (11) 10(A) , No pain 12:23:41 75 15 97 88/52(66) NSR 0 (11) 10(A) , No pain 12:27:45 75 16 97 85/52(62) NSR 0 (11) 10(A) , No pain 12:31:49 75 17 97 87/48(61) NSR 0 (11) 10(A) , No pain 12:35:50 70 15 98 106/60(82) NSR 0 (11) 10(A) , No pain 12:40:00 72 13 97 94/52(74) NSR 0 (11) 10(A) , No pain 12:44:06 69 16 97 86/52(64) NSR 0 (11) 10(A) , No pain 12:48:10 73 15 97 88/49(67) NSR 0 (11) 10(A) , No pain 12:52:13 72 16 97 85/53(67) NSR 0 (11) 10(A) , No pain 12:56:15 70 13 98 99/54(74) NSR 0 (11) 10(A) , No pain 13:00:23 71 15 97 87/53(66) NSR 0 (11) 10(A) , No pain 13:04:27 72 16 97 89/52(65) NSR 0 (11) 10(A) , No pain 13:08:30 72 15 97 87/54(64) NSR 0 (11) 10(A) , No pain 13:12:34 71 13 97 90/54(71) NSR 0 (11) 10(A) , No pain 13:16:40 71 15 97 87/50(66) NSR 0 (11) 10(A) , No pain 13:18:53 71 17 100 89/54(64) NSR 0 (11) 10(A) , No pain Medications Time Medication Route Dose Verified Delivered Reason Notes Effectiveness by by 10:57:01 Heparin Flush added 2 Mona Mona used for Bag to bags King BOUCHRA Heller RN procedure (1000units/500ml field NS) 10:57:11 Lidocaine 1% added 20ml Mona Mona for local to vial King BOUCHRA Heller RN anesthetic field 11:19:37 Heparin Bolus I.V. 4000 Mona Mona for units King BOUCHRA Heller RN anticoagulation 12:15:01 Heparin Bolus I.V. 2000 Mona Mona for units King BOUCHRA Heller RN anticoagulation Procedure Log Time Note 10:34:55 Mona Heller RN sent for patient. Start room use. 10:35:06 Time tracking: Regular hours 10:35:11 Plan of Care:Hemodynamics will remain stable., Cardiac rhythm will remain stable., Comfort level will be maintained., Respiratory function will remain adequate., Patient/ family verbilizes understanding of procedure., Procedure tolerated without complication., Recovers from procedure without complications.. 10:35:43 Patient received from CVICU to IR Alert and oriented. Tansferred to table in Supine position. 10:35:45 Warm blankets applied, and sonny hugger turned on for patient comfort. 10:35:46 Correct patient and procedure confirmed by team. 10:35:48 Signed procedure consent form obtained from patient. 10:35:50 Full Disclosure recording started 10:35:50 - 10:35:56 H&P Date Dictated: 07/14/2016 Within 30 days and on chart.. 10:35:57 Pre-procedure instructions explained to patient. 10:35:59 Pre-op teaching completed and patient verbalized understanding. 10:36:02 Family in waiting room. 10:36:04 Patient NPO since Midnight. 10:36:17 - 10:36:41 SEE ANESTHESIA PRE PROCEDURE NOTE FOR TIVA 10:37:02 Use device set IR Diagnostic 10:37:04 Sterile Angiographic Pack opened to sterile field. 10:37:04 Bag Decanter opened to sterile field. 10:44:49 Pre procedure: right dorsailis pedis pulse Doppler 10:44:53 Pre procedure: left dorsailis pedis pulse Doppler 10:44:56 Pre procedure: right posterior tibial pulse Doppler 10:45:00 Pre procedure: left posterior tibial pulse Doppler 10:46:47 Sharps counted by scrub and verified by R.N. 10:46:47 Alarms reviewed by R. N. 10:46:52 Left groin area was prepped with chlora-prep and draped in sterile fashion 10:46:57 Left ANKLEarea was prepped with chlora-prep and draped in sterile fashion 10:51:19 ECG and BP/O2 sat monitors applied to patient. 10:51:26 Baseline sample Acquired. 10:52:19 Vital chart was started 10:57:01 Heparin Flush Bag (1000units/500ml NS) 2 bags added to field was administered by Mona Heller RN; used for procedure; 10:57:11 Lidocaine 1% 20ml vial added to field was administered by Mona Heller RN; for local anesthetic; 10:57:46 See anesthesia records for all sedation/vs/loc/o2 given. 11:03:05 Physician arrived 11:03:06 --------ALL STOP TIME OUT------ 11:03:09 Final Timeout: patient, procedure, and site verified with staff and physician. All members of the team are in agreement. 11:03:15 Left groin site verified by team AND LT.ANKLE 11:03:19 Physical assessment completed. ASA score P 3 - A patient with severe systemic disease as per Ayush Palafox MD. 11:03:24 Sedation plan: TIVA Propofol 11:04:28 Procedure started. 11:04:35 Local anesthetic to left aNKLE with Lidocaine 1% by Damion Holder MD.INITIAL ACCESS ONLY 11:05:26 Micropuncture VSI 4FR kit opened to sterile field. 11:05:27 Cook BENTSON 145cm guide wire opened to sterile field. 11:15:18 Terumo 5Fr Greenwood Sheath opened to sterile field. 11:18:[address] .035 145 glide wire opened to sterile field. 11:18:34 CXI Catheter 90cm opened to sterile field. 11:19:37 Heparin Bolus 4000 units I.V. was administered by Mona Heller RN; for anticoagulation; 11:28:50 Terumo 5FR ANGLED 65CM glide catheter opened to sterile field. 11:29:55 Terumo ANGLE 180L glide wire opened to sterile field. 11:37:59 Cook HERNANDEZ 260 guide wire opened to sterile field. 11:38:06 Terumo 6Fr Greenwood Destination Sheath opened to sterile field. 11:38:15 Local anesthetic to left femerol artery with Lidocaine 1% by Damion Holder MD.ADDITIONAL ACCESS 11:38:33 A 7 Fr Mid-Length sheath was inserted into the Left Femoral artery 11:40:19 Cook HERNANDEZ 260 guide wire opened to sterile field. 11:40:20 Colstrip Urjanet Choice PT Extra Support J 300cm .014 gu opened to sterile field. 11:42:06 A Diagnostic 5Fr IMT Catheter was advanced over the wire and used for . 11:51:20 BasixTOUCH Inflation Syringe opened to sterile field. 11:52:10 Inflation number: 1 A [employer] Powerflex Pro 4.0 x 40 x 135cm balloon was prepped and advanced across the Undefined lesion 1 on undefined graft 1, then inflated to 0 OLIVIER for 0:00 (min:sec). 11:55:18 OUTBACK LTD L120C catheter opened to sterile field. 12:07:05 Colstrip Sci Choice Floppy Straight 300cm 0.014 guid opened to sterile field. 12:07:24 Turbohawk 1 Small Atherectomy catheter opened to sterile field. 12:07:53 CXI SUPPORT .035 135 CM STR catheter opened to sterile field. 12:15:01 Heparin Bolus 2000 units I.V. was administered by Mona Heller RN; for anticoagulation; 12:34:03 Inflation number: 1 A IN.PACT Admiral 4.0 x 120 x 135 DCB Balloon was prepped and advanced across the Undefined1, then inflated to 0 OLIVIER for 0:00 (min:sec). 12:49:50 Cordis SMART Flex 5 X 40 X 120 stent was deployed across Undefined1 . 12:50:52 Inflation number: 2 A Cordis Powerflex Pro 5.0 x 40 x 135cm balloon was prepped and advanced across the Undefined1, then inflated to 0 OLIVIER for 0:00 (min:sec). 13:03:16 St Bobby 6Fr sheath opened to sterile field. 13:08:19 Procedure ended.(Physican Out) 13:09:58 Fluoroscopy time 26.50 minutes. 13:10:05 Fluoroscopy dose: 116 mGy 13:10:05 Flurop Dose total: 116 13:13:04 Contrast amount:Isovue 300 45ml. 13:13:06 Sharps counted by scrub and verified by R.N. 13:13:10 Insertion/operative site no bleeding no hematoma. 13:13:21 Post-op/insertion site Left Femoral artery dressed using a 4 x 4 and Tegaderm. 13:13:25 Post left femerol artery:stable 13:13:27 Post Procedure Pulses reassessed and unchanged 13:14:00 Post-procedure physical assessment completed. ASA score P 3 - A patient with severe systemic disease as per Damion Holder MD. 13:16:04 4 X 4 OPSITE APPLIED TO RT.ANKLE AREA SITE STABLE 13:16:06 Post procedure instruction explained to patient.Patient verbalizes understanding. 13:21:23 SEE ANESTHESIA NOTE FOR POST PROCEDURE TIVA 13:21:28 Report given to CVICU. 13:21:31 Patient transfered to CVICU with Bed. 13:22:41 Vital chart was stopped Intervention Summary Intervention Notes Time ActionType Lesion and Equipment Action# Pressure Duration Attributes Used 11:52:10 Inflate Undefined Cordis 1 0 00:00 balloon lesion 1 on Powerflex undefined Pro 4.0 x graft 1 40 x 135cm balloon 12:34:03 Inflate Undefined1 IN.PACT 1 0 00:00 balloon Admiral 5.0 x 120 x 135 DCB Balloon 12:49:50 Deploy self Undefined1 Cordis 1 expanding SMART stent Flex 5 X 40 X 120 stent 12:50:52 Inflate Undefined1 Cordis 2 0 00:00 balloon Powerflex Pro 5.0 x 40 x 135cm balloon Device Usage Item Name Manufacture Quantity Catalog Number Hospital Part Current Tn nimal Lot# / Charge Number Stock Stock Serial# Code Sterile Cardinal 1 [id number] 617006 5 Angiographic Health Pack Bag Decanter Microtek 1 [id number] 50063 350403 5 Medical Inc. Micropuncture VSI VASCULAR 1 [id number] 127102 828021 5 VSI 4FR kit SOLUTIONS [facility] 1 [id number] 782844 186085 5 0880705 145cm guide wire Terumo 5Fr Terumo 1 [id number] 715288 400324 629407 40 Greenwood Sheath [facility] 1 Z46138 564245 282987 5 ROADRUNNER .035 145 glide wire CXI Catheter [facility] 1 F17150 701139 177760 346361 5 90cm Terumo 5FR Terumo 1 [id number] 581006 544399 5 ANGLED 65CM glide catheter Terumo ANGLE Terumo 1 [id number] 273009 939158 185478 5 180L glide wire [facility] 2 K87628 360727 259554 5 [id number] 260 guide 0789251 wire Terumo 6Fr Terumo 1 RSR01 330033 81140 449593 5 Greenwood Destination Sheath Colstrip Sci Colstrip 1 [id number] 921329 991215 362210 5 [id number] Choice PT Scientific Extra Support J 300cm .014 gu Diagnostic Colstrip 1 [id number] 216022 482259 16535 5 [id number] 5Fr IMT Scientific Catheter BasixTOUCH Merit 1 KT0921 527184 904380 319852 5 Inflation Medical Syringe Cordis Cardinal 1 [id number] 353231 123590 512380 5 Powerflex Pro Health 4.0 x 40 x 135cm balloon OUTBACK LTD Cardinal 1 [id number] 017128 718924 598923 5 L120C Health catheter Colstrip Sci Colstrip 1 [id number] 965375 489214 445147 5 Choice Floppy Scientific Straight 300cm 0.014 guid Turbohawk 1 Ev3 1 H1-S 796766 2976251 592837 5 Small Atherectomy catheter CXI SUPPORT [facility] 1 W34351 995933 163186 5 .035 135 CM STR catheter IN.PACT Medtronic 1 [id number] 186377 402608 398159 5 Admiral 5.0 x 120 x 135 DCB Balloon Cordis SMART Cardinal 1 [id number] 018676 938661 0 16276 Flex 5 X 40 X Health 120 stent Cordis Cardinal 1 [id number] 767878 739630 699257 5 Powerflex Pro Health 5.0 x [address] Bobby [address] St Bobby 1 [id number] 037168 613587 5 [id number] sheath Signature Audit [place] [facility] Time Signature Unsigned Intra-Procedure 07/14/2016 Marcio 1:22:38 PM Derrick RT (R) (CV) Signatures Monitor : Marcio Signature : Derrick RT Date : Time : [id number] [place] [address]
[~2016-07-10 08:12] MED LIST changes: -COZAAR50 MG PO; -ELIQUIS5 MG PO; -HYDRALAZINE HCL50 MG PO; -PRESERVISION AR1 CAP PO
[2016-07-10 09:25] LABS: HEMATOCRIT 39.4 % (42.0-54.0); HEMOGLOBIN 13.4 g/dL (13.5-17.5); MCH 33.3 pg (26.0-34.0); MEAN PLATELET VOLUME 11.6 fL (7.4-10.4); RBC 4.02 10x6/uL (4.20-6.10); RDW 13.5 % (11.5-14.5); WBC 4.5 10x3/uL (4.8-10.8)
[2016-07-10 09:31] LABS: APTT 28.9 SECONDS (22.8-39.4); INR 0.99 (0.85-1.17); PROTIME 12.9 SECONDS (11.6-15.0)
[2016-07-10 09:37] LABS: ALBUMIN 3.6 g/dL (3.4-5.0); ANION GAP 12.5 mmol/L (8-16); BILIRUBIN - TOTAL 0.52 mg/dL (0.2-1.3); CALCIUM 8.7 mg/dL (8.5-10.1); CARBON DIOXIDE 27.6 mmol/L (21.0-32.0); CREATININE - SERUM 1.3 mg/dL (0.6-1.3); POTASSIUM - SERUM 4.1 mmol/L (3.5-5.1); PROTEIN - SERUM 7.1 g/dL (6.4-8.2)
[2016-07-10 10:08] LABS: APPEARANCE CLEAR (CLEAR); BILIRUBIN NEGATIVE (NEGATIVE); COLOR YELLOW (YELLOW); GLUCOSE NEGATIVE (NEGATIVE); KETONE NEGATIVE (NEGATIVE); LEUKOCYTE ESTERASE NEGATIVE (NEGATIVE); NITRITE NEGATIVE (NEGATIVE); PROTEIN 1+ mg/dL (NEGATIVE); SPECIFIC GRAVITY 1.015 (1.005-1.020); UROBILINOGEN NORMAL (NORMAL)
[2016-07-10 10:09] LABS: BACTERIA FEW /hpf (NONE SEEN); EPITHELIAL CELLS NSEEN /hpf (0-5); GRANULAR CAST OCC /lpf (NONE SEEN); RED CELLS - URINE NONE SEEN /hpf (0-5); WHITE CELLS - URINE OCC /hpf (0-5)
[2016-07-10] MEDS ORDERED: COZAAR50 MG PO (10:31)
[2016-07-10] MEDS ORDERED: HYDRALAZINE HCL50 MG PO (10:32)
[2016-07-10] MEDS ORDERED: PRESERVISION AR1 CAP PO (10:33)
--- NOTE | 2016-07-10 14:57 | NUR ---
RECIEVED PT TO ROOM CV7 AT 1433 VIA BED. SIMPLE MASK IN PLACE AT 10L. CRITICORE ENGLE PATENT WITH CLEAR YELLOW URINE. WARM BLANKETS APPLIED. FEMSTOP TO LEFT GROIN SET AT 124 MMHG. PULSES BY DOPPLAR. ALERT AND ORIENTED. DENIES ANY PAIN. STATES "I CAN FEEL MY TOES! THATS A WONDERFUL FEELING". BICARB GTT INFUSING AT 150 ML/HR NITRO DRIP AT 3.9 ML/HR. C/L IN REACH.
--- NOTE | 2016-07-10 15:23 | NUR ---
FEMSTOP ADJUSTED TO 40 MMHG.
--- NOTE | 2016-07-10 15:30 | NUR ---
TURNED ON SIDE TO CHECK FOR ANY S/SX OF RETROPERITONEAL BLEED. NO S/SX NOTED.
--- NOTE | 2016-07-10 16:16 | NUR ---
PT DID NOT ARRIVE TO CVICU UNTIL 1456 AND WAS FRESH FROM OR/ANESTHESIA. UNABLE TO ASSESS DC PLAN AT THIS TIME. CM TO ASSESS AT LATER TIME.
--- NOTE | 2016-07-10 17:00 | NUR ---
CHECKED FOR S/SX OF BLEEDING OR RETROPERITONEAL BLEED. NONE NOTED.
--- NOTE | 2016-07-10 19:00 | NUR ---
WITH DAY SHIFT NURSE, LO SHOOK, ASSESSED GROIN WHERE FEM-STOP LOCATED. UPON D/C'ING FEM-STOP BEGAN OOZING AT PUNCTURE SITE TO LEFT GROIN. REAPPLIED & REPOSITIONED FEM-STOP AT 40MMHG. OOZING STOPPED VIA CLEAR WINDOW. PULSES BILATERALLY DOPPLERED TO PEDAL AND POSTERIOR TIBIAL PULSES. REPORTS SOME NUMBNESS TO RT FOOT. HEELS BRIDGED. NSR ON THE MONITOR IN THE 80'S WITH FREQUENT PVC'S. ON O2 @ 2LPM/NC. LEFT SC CVL INTACT-SEE IV FLOWSHEET. LEFT SHELTON 22G PIV WITH HEPARIN @ 750 UNITS/HR. WILL MONITOR.
--- NOTE | 2016-07-10 19:00 | NUR ---
CHECKED FOR S/SX OF BLEEDING WITH ERICK SHOOK. NONE NOTED.
--- NOTE | 2016-07-10 20:50 | NUR ---
DR. SMYTH CALLED AND INFORMED OF DECREASED B/P, URINARY OUTPUT AND LEFT GROIN SITE WITH FEM-STOP REMAINING IN PLACE AND OF INTERMEITTENT PEDAL RT PULSE VIA DOPPLER. NEW ORDERS RECEIVED FOR ALBUMIN AND IV CALCIUM. WILL CONTINUE TO MONITOR.
--- NOTE | 2016-07-10 20:59 | NUR ---
PO PAIN MEDICATION GIVEN. REPORTS PAIN TO RT HIP 6/10 ON NUMBER SCALE. DEFINED "ACHING". DENIES BACK PAIN. MED SWALLOWED WITHOUT DIFFICULTY. WILL MONITOR.
--- NOTE | 2016-07-10 21:08 | NUR ---
IV CALCIUM AND 2ND BOTTLE OF ALBUMIN 25% HUNG.
--- NOTE | 2016-07-10 22:40 | NUR ---
FEM-STOP PRESSURE RELEASED. FEM-STOP KEPT IN PLACE. NO OOZING NOTED. PULSES DOPPLERED TO BILATERAL PEDAL AND POSTERIOR TIBIAL AREAS. WILL MONITOR.
--- NOTE | 2016-07-10 22:57 | NUR ---
RESTARTED HEPARIN GTT @ 550 UNITS/HR. SBP 80-90'S WITH MAP IN THE 60'S. WILL MONITOR.
--- NOTE | 2016-07-10 23:30 | NUR ---
PLACED 4X4'S TAPE TO SMALL OOZING AREA ABOVE PENIS/PUBIC AREA. PLACED NEW GOWN ON. DENIES TO BE TURNED IN BED AT THIS TIME. NO OOZING AT LEFT GROIN PUNCTURE SITE. WILL MONITOR.
[2016-07-11] VITALS (60 sets, daily range): BP systolic 88–146; BP diastolic 32–94
--- NOTE | 2016-07-11 01:00 | NUR ---
PULSES AUDIBLE BY DOPPLER TO BILATERAL PEDAL AND POSTERIOR TIBIAL PULSES. FEET WARM TO TOUCH. RT FOOT PULSE FOUND SLIGHTLY OFF MARKED AREA. WILL MONITOR.
--- NOTE | 2016-07-11 02:15 | NUR ---
LEFT GROIN SITE WITHOUT ANY OOZING. FEM-STOP JUST LAYING ACROSS GROIN WITHOUT PRESSURE AND NOW BELT LOOSE. DENIES PAIN AT THIS TIME. NO ACUTE DISTRESS NOTED. WILL MONITOR.
--- NOTE | 2016-07-11 03:30 | NUR ---
REASSESSMENT COMPLETED. SEE ASSESSMENT FOR DETAILS. FEM-STOP BELT REMOVED AND CLEANSED AROUND LEFT GROIN SITE. APPLIED 4X4'S AND TEGADERM TO LEFT GROIN SITE. CLEANSED AROUND ENGLE CATHETER OF DRIED BLOODY DRAINAGE. C/O RT ANKLE PAIN AND DESCRIBED ACHING. PEDAL AND POSTERIOR TIBIAL PULSES AUDIBLE BY DOPPLER BILATERALLY. PO PAIN MEDS GIVEN PER REQUEST FOR PAIN 4/10 ON NUMBER SCALE TO RT ANKLE. SLIGHT TURN TO LEFT SIDE WITH PILLOW FOR COMFORT COMPLETED. HEELS BRIDGED AND CUSHION BETWEEN LEGS APPLIED. SPECIMEN OBTAINED FROM LEFT SC CVL CVP PORT FOR TIMED PTT AND OTHER AM LABS DRAWN AT THIS TIME TO CONSERVE BLOOD LOSS. WILL CONTINUE TO MONITOR.
[2016-07-11 04:01] LABS: MCH 33.6 pg (26.0-34.0); MCHC 33.9 g/dL (31.0-37.0); MCV 98.9 fL (80.0-100.0); MEAN PLATELET VOLUME 11.6 fL (7.4-10.4); RBC 2.8 10x6/uL (4.20-6.10); RDW 13.6 % (11.5-14.5); WBC 2.9 10x3/uL (4.8-10.8)
[2016-07-11 04:02] LABS: HEMATOCRIT 27.7 % (42.0-54.0); HEMOGLOBIN 9.4 g/dL (13.5-17.5)
[2016-07-11 04:22] LABS: ALBUMIN 3.9 g/dL (3.4-5.0); ANION GAP 12.3 mmol/L (8-16); BILIRUBIN - TOTAL 0.46 mg/dL (0.2-1.3); CALCIUM 8.8 mg/dL (8.5-10.1); CARBON DIOXIDE 29.8 mmol/L (21.0-32.0); CREATININE - SERUM 1.2 mg/dL (0.6-1.3); POTASSIUM - SERUM 4.1 mmol/L (3.5-5.1)
--- NOTE | 2016-07-11 05:20 | NUR ---
I & O'S ASSESSED. LEFT GROIN DRSG WITHOUT EVIDENCE OF BLEEDING, SWELLING OR HEMATOMA NOTED. SCATTERED DOTTED BRUISEDTO DISTAL SITE BUT NOT HARD TO TOUCH. REPORTS PAIN @ A 2/10 ON NUMBER SCALE. WILL MONITOR.
--- NOTE | 2016-07-11 06:47 | NUR ---
PRN PAIN PILL GIVEN PER REQUEST FOR PAIN 4-5/10 TO RT ANKLE AND MID LOWER BACK ON THE SPINE AREA. DENIES TO BE TURNED AT THIS TIME. LEFT GROIN DRSG C/D/I, NO HEMATOMA. WILL MONITOR.
--- NOTE | 2016-07-11 06:55 | NUR ---
BEDSIDE REPORT GIVEN TO LO SHOOK. TURNED TO LEFT SIDE TO ASSESS BACK AND FOR RETROPERITONEAL BLEEDING. NONE NOTED. REPORTS PAIN ON THE SPINE LOWER BACK.
--- NOTE | 2016-07-11 09:07 | NUR ---
AT BEDSIDE. NO CURRENT NEEDS OR C/O.
--- NOTE | 2016-07-11 09:52 | NUR ---
DR. SMYTH AT BEDSIDE SPEAKING WITH PT AND .
--- NOTE | 2016-07-11 11:06 | OP ---
PATIENT NAME: AALIYAH CONNORS MEDICAL RECORD: [id number] :37 LOCATION:[facility].CV07 ADMISSION DATE:07/10/16 SURGEON: JOSELUIS SMYTH MD DATE OF OPERATION: 07/10/2016 SURGEON: Joseluis Smyth MD ANESTHESIA: General endotracheal, Dr. Palafox. OPERATION PERFORMED: 1. Left retrograde common femoral artery sheath placement, 4-Anguillan, 5-Anguillan, 6-Anguillan long. 2. Left retrograde iliac arteriogram. 3. Right common femoral arteriogram. 4. 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 5. Popliteal arteriogram. 6. Posterior tibioperoneal artery trunk arteriogram. 7. Angioplasty of the popliteal and superficial femoral artery with a 5 x 300 balloon. 8. Stent popliteal, superficial femoral artery with a 6 x 250 and 7 x 100. PREOPERATIVE DIAGNOSES: Critical limb ischemia, rest pain secondary to atherosclerosis, right lower extremity. 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 INDICATION FOR OPERATION: Critical limb ischemia, right leg. FINDINGS OF THE OPERATION: Fluoro time was 18 minutes 30 seconds. Contrast 112 mL. FINDINGS OF THE OPERATION: 1. Left retrograde external iliac arteriogram demonstrates diffuse disease. A 4-cm abdominal aortic aneurysm and luminal irregularities in the iliac system. 2. Right common femoral arteriogram demonstrates calcific disease at the bifurcation of the profunda and superficial femoral artery. 3. Superficial femoral arteriogram demonstrates diffuse proximal disease, chronic total occlusion of the mid superficial femoral artery, popliteal artery, and proximal trifurcation. 4. Right popliteal arteriogram acrossing chronic total occlusion demonstrates an isolated segment on the knee, the posterior tibioperoneal artery trunk, proximal anterior tibial artery, peroneal and posterior tibial arteries were occluded. 5. Right posterior tibioperoneal artery arteriogram demonstrates subintimal dissection with flow through the peroneal artery to the ankle via collaterals. DESCRIPTION OF PROCEDURE: After informed consent, adequate preoperative medication evaluation, the patient was brought to the operating room, placed on the table in the supine position. After induction of general endotracheal anesthesia and application of appropriate monitoring devices, the abdomen, both groin and right leg were prepped and draped in a sterile field, utilizing Betadine scrub, alcohol, and Betadine solution. A Betadine-impregnated drape was also used. Utilizing the micropuncture technique, a 4-Anguillan sheath was placed retrogradely in the left common femoral artery and exchanged for a OPERATIVE REPORT [id number] AALIYAH CONNORS 5-Anguillan sheath. Arteriogram demonstrated the above findings. Utilizing a Glidewire and rim catheter, the right superficial femoral artery was cannulated and exchange made for an Amplatz wire. A 4-Anguillan sheath was then placed over the wire into the common femoral artery, common femoral artery demonstrated above. The sheath was advanced into the proximal superficial femoral artery utilizing multiple wires and Quick-Cross catheters. The chronic total occlusion of the superficial femoral artery was accomplished. A popliteal arteriogram demonstrated an isolated segment with chronic total occlusion distally in the distal popliteal artery and proximal portions of the trifurcation. There was some reconstitution in the peroneal artery utilizing multiple wires and 0.018 Quick-Cross, the posterior tibioperoneal artery trunk was eventually cannulated, but a wire would not pass into the posterior tibial artery or peroneal artery and injection of the posterior tibioperoneal artery trunk demonstrated subintimal dissection with collateral flow into the distal peroneal artery. A exchange was made for a Glidewire and a 5-Anguillan balloon was used to dilate the popliteal and superficial femoral artery, it improved flow; however, was suboptimal with loose atheroma utilizing a 6-Anguillan ____ stent and a 7 x 100 mm stent. The areas from the popliteal artery into the proximal superficial femoral artery was accomplished to improve flow distally. Post-dilatation of the stent was performed with a 6 x 300 balloon. The patient has sluggish flow through this area as well as a lower cardiac output and poor distal runoff even through collaterals. He will be maintained on a heparin drip. The wires and catheter sheaths were removed and a 6-Anguillan Angio-Seal deployed. The patient tolerated the procedure well and was transferred to the ____ ICU in satisfactory condition. OPERATIVE PROCEDURE: Intraoperative consultation with Dr. Montes. He will plan to attempt a retrograde access to this area, to try to improve the outflow; however, this limb is in jeopardy. TRANSINT:[id number] Voice Confirmation ID: [id number] DOCUMENT ID: [id number] JOSELUIS SMYTH MD at 1106 CC: [id number] DICTATION DATE: 07/10/16 1511 SUPERVISOR TELLERS: 07/10/169 ADM IN [facility] [address] [id number]
--- NOTE | 2016-07-11 11:06 | HP ---
PATIENT: AALIYAH CONNORS MEDICAL RECORD: [id number] ACCOUNT: [id number] LOCATION:[facility]07 : 39 ADMISSION DATE: 07/10/16 HISTORY AND PHYSICAL EXAMINATION AALIYAH Fraga (80yo, M) ID# [id number]. Date/Time07/09/2016 10:62AAQKV83/1938[facility] Dept.NP_[place] ClinicProviderEDILEANA SMYTH MDInsuranceMed Primary: MEDICARE-[place] (MEDICARE) Insurance # : [id number] Referring Provider Name : TERRIE BECKER Employer Name : RETIRED Med Secondary: [employer] (MEDICARE SUPPLEMENT) Insurance # : [id number] Referring Provider Name : TERRIE BECKER Employer Name : RETIRED Prescription: ARGSDIR - Member is eligible. 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 Followup: Aortic valve disorder Followup: Carotid artery stenosis s/p CABG/AVR 08/22/12 s/p RCEA 06/19/16 three weeks post op f/u Patient's Care Team Referring Provider (): TERRIE BECKER: [address] [place] [phone], , Other: LIUDMILA YODER MD: [address] [place] [phone], , Patient's Pharmacies [facility] (ERX): [address] [place] [phone], , Vitals BP:118/72 sitting L arm 07/09/2016 10:20 amBP Cuff Size:adult 07/09/2016 10:20 amHR:72,missed beats 07/09/2016 10:21 amHt:5 ft 11 in 07/09/2016 10:13 amWt:175 lbs 07/09/2016 10:22 amNotes:has had some hypertension, Dr Yoder has added losartan 50 daily, with hydralazine as needed. C/O right foot numbness during the day, with nighttime pain that wakes him often more than once nightly. Has had arterial doppler from [place] with report in chart.07/09/2016 10:24 amBMI:24.4 07/09/2016 10:22 amAllergies Reviewed Allergies CRESTORLIPITORPRAVASTATINSome allergies listed in Documents: #[id number], #[id number] could not be added to this patient's chart. Please review these documents and add these allergies to the patient's chart manually as needed.Medications Reviewed Medications Aleve every am and pm, start [facility] Wilsonaspirin 81 mg tablet,delayed release Take 1 tablet(s) every day by oral route., start filledContinuecare Hospitalclopidogrel 75 mg tablet Take 1 tablet(s) every day by oral route.06/17/16 filledConfer SystemsFluzone High-Dose [id number] (PF) 180 mcg/0.5 mL intramuscular syringe ADM 0.5ML IM UTD105/05/15 filledsurescriptsfolic acid 1 mg trzxcy23/08/17 filledArg Health SystemshydrALAZINE 50 mg /21/17 filledArg Health Systemslosartan 50 mg dompcb38/21/17 filledArg Health SystemsmetHOTREXate sodium 2.5 mg teucdh80/08/17 filledM[facility] Health Systemsmetoprolol succinate ER 25 mg HISTORY AND PHYSICAL [id number] AALIYAH CONNORS tablet,extended release 24 hr Take 1 tablet(s) every day by oral route.06/23/16 [facility] [employer] Jmaeoyymbycnpzgzgjp46/14/17 enteredKat WilsonPreserVision AREDS06/17/16 enteredKat WilsonPrevnar 13 (PF) 0.5 mL intramuscular /23/15 filledsurescriptsVaccines Reviewed Vaccines Some vaccines listed in Documents: #[id number], #[id number] could not be added to this patient's chart. Please review these documents and add these vaccines to the patient's chart manually as needed. 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 Please review these documents and add these problems to the patient's chart manually as needed. Family History Reviewed Family History Non-contributory.Father- (onset age: 32) - WWIIMother- Malignant neoplastic disease ( age: 88)Social History Reviewed Social History Cardiology Family history of heart disease?: N Smoking Status: Former smoker Non-smoker High Cholesterol: Y High blood pressure: Y Exercise level: None Diabetes: N Alcohol intake: Occasional Occupation: retired M arital status: Is blood transfusion acceptable in an emergency?: Y Tobacco-years of use: 25 Surgical History Reviewed Surgical History CABG - 08/22/2012 - CABG/AVR W TISSUE VALVE Shoulder arthroscopy with rotator cuff repair - 04/28/2012 Other - 04/2006 LEFT SHOULDER SURGERY, CATARACT SURGERY, LEFT KNEE REPLACEMENT Past Medical History Reviewed Past Medical History Blood Clots: Y Heart Disease: Y Heart Murmur: Y High Blood Pressure: Y Hyperlipidemia: Y Hypertension: Y HISTORY AND PHYSICAL [id number] AALIYAH CONNORS Pain in legs when walking: Y Swelling of Ankles, Feet or Hands: Y Valve disease: Y - AVR 08/22/12 Notes: CAROTID ARTERY STENOSIS Documents for Discussion N/A Screening None recorded. HPI Post-Op Visit Reported by patient. Onset/Timing: date of surgery: (06/19/16) Quality: procedure: (RCEA) Context: reason for procedure: (CHELE stenosis); operative complications: postop right carotid endarterectomy Critical limb ischemia right lower leg ROS Patient reports exercise intolerance but reports no fever, no night s weats, no significant weight gain, and no significant weight loss. He reports known heart murmur (PROSTHETIC) but reports no chest pain, no arm pain on exertion, no shortness of breath when walking, no shortness of breath when lying down, and no palpitations. He reports arthralgias/joint pain but reports no muscle aches, no muscle weakness, no back pain, and no swelling in the extremities; claudication right lower extremity. He reports weakness and dizziness but reports no loss of consciousness, no numbness , no seizures, and no headaches. He reports no dry eyes, no irritation, and no vision change. He reports no difficulty hearing and no ear pain. He reports no frequent nosebleeds and no nose/sinus problems. He reports no sore throat, no bleeding gums, no s n oring, no dry mouth, no mouth ulcers, no oral abnormalities, and no teeth problems. He reports no cough, no wheezing, no shortness of breath, and no coughing up blood. He reports no abdominal pain, no vomiting, normal appetite, no diarrhea, not vomiting b l ood, no nausea, and no constipation. He reports no incontinence, no difficulty urinating, no hematuria, and no increased frequency. He reports no abnormal mole, no jaundice, and no rashes. He reports no depression, no sleep disturbances, feeling safe in r elationship, and no alcohol abuse. He reports no fatigue. He reports no swollen glands and no bruising. He reports no runny nose, no sinus pressure, no itching, no hives, and no frequent sneezing. ROS as noted in the HPI Physical Exam Patient is a 80-year-old male. Constitutional: General Appearance well nourished and developed and healthy-appearing. Level of Distress NAD. Ambulation ambulating normally. Cardiovascular: Apical Impulse not displaced or no thrill. Heart Auscultation normal s1 and s2, no rubs or gallops, and RRR and murmur (PROSTH). Arterial Pulses no abdominal aorta bruits, femoral bruits, or popliteal bruits; popliteal not palpable (right lower) and dorsalis pedis not palpable (right); and 2+ bilateral, carotid 2+ bilateral, and femoral 2+ bilateral. Edema no edema or varicosities. Lungs: Repiratory Effort no dyspnea. Percussion no hyperresonance or dullness or flatness. Auscultation no wheezing, rhonchi, or rales / crackles and breathing sounds normal, good air movement, and CTA except as noted. Abdomen: Bowl Sounds normal. Inspection and Palpation no tenderness, guarding, HISTORY AND PHYSICAL [id number] BRIDGES,AALIYAH C masses, or rebound tenderness and soft and non-distended. Liver non-tender and no hepatomegaly. Spleen non-tender and no splenomegaly. Hernia none palpable. Ears, Nose, Throat: Hearing grossly normal hearing. Nose no external nose lesion. Lips, Teeth, and Gums no mouth or lip ulcers. Oropharynx: moist mucous membranes. Musculoskeletal System: Gait And Stance normal gait and stance. Digits and Nails normal nails and no cyanosis. Joints, Bones, and Muscles limited ROM. Neurologic: Cranial Nerves grossly intact. Reflexes DTRs 2+ bilaterally throughout. Sensation grossly intact. Lymph Nodes: Lymph Nodes no cervical LAD, supraclavicular LAD, axillary LAD, or inguinal LAD. Eyes: Lids and Conjunctivae no discharge or pallor and non-injected. Pupils PERRLA. Cornea grossly intact. EOM EOMI. Lens clear. Sclerae non-icteric. Neck: Neck no masses or enlarged lymph nodes and supple, trachea midline, and carotid bruits (can not tell the difference between a transmitted cardiac murmur or bilateral carotid bruits). Thyroid no enlargement or nodules and non-tender. Skin: Inspection and Palpation no rash, lesions, ulcers, jaundice, or abnormal nevi. Assessment / Plan resting well postop right carotid endarterectomy critical limb ischemia right leg 1. Carotid artery stenosis - Bilateral I65.23: Occlusion and stenosis of bilateral carotid arteries CAROTID STENOSIS: CARE INSTRUCTIONS 2. Limb pain at rest due to atherosclerosis of cheesh-na artery I70.221: Atherosclerosis of cheesh-na arteries of extremities with rest pain, right leg 3. 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 Aortic valve disorder I35.9: Nonrheumatic aortic valve disorder, unspecified HEART VALVE DISEASE: CARE INSTRUCTIONS Discussion Notes progressing well postoperatively and endarterectomy Need CTA abdomen and pelvis lower extremity which we will obtain today He will need intervention or bypass right lower extremity Return to Office to see Vinicius Smyth MD at [facility] on or around 07/10/2016 Vinicius Smyth MD for Office Visit 15 at [facility] on 12/31/2016 at 09:15 AM to see Vinicius Smyth MD at [facility] on or around 01/01/2017 HISTORY AND PHYSICAL [id number] AALIYAH CONNORS EDWARD MD at 1106 CC: [id number] DICTATION DATE: 07/09/16 1030 FIRE CONTROL TECHNICIAN G: BAUTISTA 07/10/16 0908 ADM IN [place] [id number] [place] [address]
--- NOTE | 2016-07-11 11:34 | NUR ---
BED BATH AND LINEN CHANGE COMPLETED. HEELS BRIDGED. BBP APPLIED TO BUTTOCKS. NO CURRENT C/O.
--- NOTE | 2016-07-11 19:05 | NUR ---
SHIFT ASSESSMENT COMPLETED. SEE ASSESSMENT FLOWSHEET FOR DETAILS. NSR WITH FREQUEST PAC'S/PVC'S ON THE MONITOR IN THE 70'S. LEFT SC CVL INTACT. DECREASED NITRO GTT TO 0.6MCG/KG/MIN. LEFT GROIN DRSG C/D/I. MID PUBIC AREA FROM OLD OOZING C/D/I. LEFT FA 22G PIV INTACT W/ HEPARIN INFUSING @ 650 UNITS/HR. RT FOOT/ANKLE-SKIN TIGHT IN APPEARANCE. +1 EDEMA TO RLE. PEDAL AND POSTERIOR TIBIAL PULSES AUDIBLE BY DOPPLER. FOOT CRADEL IN USE ON BED TO HELP PREVENT PAIN FROM WEIGHT OF COVERS. DENIES ANY PAIN AT THIS TIME. WILL CONTINUE TO MONITOR.
--- NOTE | 2016-07-11 20:45 | NUR ---
PTT LAB SPECIMEN DRAWN FROM LEFT CV CVP PORT. DRAWS AND FLUSHES WELL. DENIES TO BE TURNED IN BED. REPORTS COMFORT AND NO PAIN AT THIS TIME. WILL MONITOR.
--- NOTE | 2016-07-11 21:30 | NUR ---
REQUESTED TO BE TURNED AND PULLED UP IN BED. PULLED UP IN BED AND TURNED TO LEFT SIDE WITH PILLOW SUPPORT. HEELS BRIDGED. WILL MONITOR.
--- NOTE | 2016-07-11 23:15 | NUR ---
REASSESSMENT COMPLETED. SEE ASSESSMENT FLOWSHEET. NO NEW ACUTE CHANGES NOTED. REPORTS RT ANKLE PAIN NEVER HAS COMPLETELY GONE AWAY. WANTS PAIN PILL AGAIN WHEN TIME. NITRO GTT TURNED OFF. SYSTOLIC IN THE 90'S. WILL MONITOR.
[2016-07-12] VITALS (70 sets, daily range): BP systolic 92–161; BP diastolic 47–77
--- NOTE | 2016-07-12 00:45 | NUR ---
PO PAIN MEDS GIVEN FOR PAIN TO RT ANKLE AND RT HEEL A 7/10 ON NUMBER SCALE. DENIES ANY OTHER NEEDS. WILL MONITOR.
--- NOTE | 2016-07-12 01:55 | NUR ---
EYES CLOSED. NO ACUTE DISTRESS NOTED. DECREASED NITRO TO 0.2 MCG/KG/MIN. WILL MONITOR.
--- NOTE | 2016-07-12 03:40 | NUR ---
REASSESSMENT COMPLETED. SEE ASSESSMENT. NO NEW ACUTE CHANGES NOTED. NO ACUTE DISTRESS NOTED. WILL MONITOR.
--- NOTE | 2016-07-12 04:30 | NUR ---
AM AND TIMED PTT DRAWN. AFTER REQUESTING TO HAVE PAIN MEDS LAST TIME IN ROOM, DENIES TO HAVE AT THIS TIME. WILL MONITOR.
[2016-07-12 04:33] LABS: HEMATOCRIT 28.1 % (42.0-54.0); HEMOGLOBIN 9.4 g/dL (13.5-17.5); MCH 33.2 pg (26.0-34.0); MCHC 33.5 g/dL (31.0-37.0); MCV 99.3 fL (80.0-100.0); MEAN PLATELET VOLUME 11.4 fL (7.4-10.4); RBC 2.83 10x6/uL (4.20-6.10); RDW 13.5 % (11.5-14.5)
[2016-07-12 04:42] LABS: WBC 4.2 10x3/uL (4.8-10.8)
[2016-07-12 04:53] LABS: ALBUMIN 3.2 g/dL (3.4-5.0); ANION GAP 10.4 mmol/L (8-16); BILIRUBIN - TOTAL 0.39 mg/dL (0.2-1.3); CALCIUM 8.1 mg/dL (8.5-10.1); CARBON DIOXIDE 28.4 mmol/L (21.0-32.0); CREATININE - SERUM 1.1 mg/dL (0.6-1.3); POTASSIUM - SERUM 3.8 mmol/L (3.5-5.1); PROTEIN - SERUM 5.4 g/dL (6.4-8.2)
--- NOTE | 2016-07-12 06:00 | NUR ---
TOOK PAIN PILL ON BEDSIDE TABLE. REPORTS PAIN WAS "CREEPING UP THERE". DENIES TO BE TURNED IN BED. WILL MONITOR.
--- NOTE | 2016-07-12 12:27 | NUR ---
INCREASED HEPARIN GTT TO [address] SMYTH'S REQUEST. DRAW BLOOD AGAIN AT [address] SMYTH REQUEST.
--- NOTE | 2016-07-12 15:26 | NUR ---
PTT RESULTS CALLED TO DR. SMYTH PER REQUEST. NO CHANGE IN HEPARIN RATE. STATES "FOR 2100 RESULTS I WOULD LIKE HIM TO BE BEWTWEEN 70-80. MAY ADJUST RATE PER PROTOCOL OR CALL ME FOR INSTRUCTIONS IF NOT IN THAT RANGE."
--- NOTE | 2016-07-12 19:46 | NUR ---
REPORT RECIEVED. ASSESSMENT COMPLETE PER FLOW SHEET. VSS. PT AWAKE ALERT ORIENTED X3. DENIES PAIN OR NEEDS AT THIS TIME. HEART S1S2 HR 85 NSR. BP 120/86 NITRO AT 1MCG/KG/MIN. O2 VIA RA O2 SAT 98% RR 18 BILAT LUNGS CLEAR. BS ACTIVE X4 ABD DISTENDED SOFT NON TENDER. BILAT RADIAL AND PEDAL PULSES PALP +2. BILAT SCD'S ON. GENERALIZED EDEMA NOTED X2 BILAT LOWER EXTREMETIES. ELEVATED ON PILLOWS. DENIES NEEDS. WILL CONTINUE TO MONITOR.
--- NOTE | 2016-07-12 21:20 | NUR ---
PTT REVIEWED, 63.3. HEP DPP INCREASED BY 100MCG PER PROTOCOL. NEEDS MET.
--- NOTE | 2016-07-12 23:16 | NUR ---
REASSESSMENT COMPLETE PER FLOW SHEET. VSS. NO NEW CHANGES. BILAT PEDAL PULSES PALP +2.
[2016-07-13] VITALS (82 sets, daily range): BP systolic 90–155; BP diastolic 6–84
--- NOTE | 2016-07-13 01:20 | NUR ---
NITRO RESTARTED AT 1MCG/KG/MIN BP 142/97. RECHECK 118/87 NEEDS MET.
--- NOTE | 2016-07-13 03:30 | NUR ---
REASSESSMENT COMPLETE PER FLOW SHEET. VSS. PT STATES HAS MINIMAL NOSE BLEEDING WHEN BLOWING NOSE. NO FURTHER NEW ASSESSMENTS NOTED. 0320 PTT READ BACK HELD FOR 30 MINUTES RATE CHANGE TO 450U/HR PER PROTOCOL. NEEDS MET.
[2016-07-13 06:11] LABS: BASOPHILS 0 % (0.0-2.0); EOSINOPHILS 5.2 % (0-7); HEMATOCRIT 29.9 % (42.0-54.0); HEMOGLOBIN 9.9 g/dL (13.5-17.5); IMMATURE GRANULOCYTES 0.2 % (0-5); LYMPHOCYTES 14.6 % (15-50); MCH 32.6 pg (26.0-34.0); MCHC 33.1 g/dL (31.0-37.0); MCV 98.4 fL (80.0-100.0); MEAN PLATELET VOLUME 11.9 fL (7.4-10.4); MONOCYTES 10.4 % (2-11); NEUTROPHILS 69.6 % (40-80); PLATELET COUNT 112 10x3/uL (130-400); RBC 3.04 10x6/uL (4.20-6.10); RDW 13.6 % (11.5-14.5)
[2016-07-13 06:42] LABS: ALKALINE PHOSPHATASE 72 U/L (46-116); BILIRUBIN - TOTAL 0.45 mg/dL (0.2-1.3); CALC OSMOLALITY 276 mosm/kg (275-300); CALCIUM 8.2 mg/dL (8.5-10.1); CHLORIDE - SERUM 104 mmol/L (98-107); GLUCOSE 92 mg/dL (74-106); POTASSIUM - SERUM 3.9 mmol/L (3.5-5.1); PROTEIN - SERUM 5.8 g/dL (6.4-8.2); SODIUM 139 mmol/L (136-145); UREA NITROGEN 10 mg/dL (7-18); eGFR NON AFRICAN AMERICAN 77 mL/min (90-120)
[2016-07-13 06:45] LABS: ALT (SGPT) 19 U/L (10-68)
--- NOTE | 2016-07-13 07:00 | NUR ---
SHIFT ASSESSMENT COMPLETE. SEE FLOW SHEET FOR DETAILS. PT AWAKE AND CONVERSANT. ON ROOM AIR. PLASMALYTE, NITRO AND HEPARIN INFUSING. DRESSING TO LEFT GROIN IS INTACT, CLEAN, AND DRY. DRESSING TO LOWER MID ABDOMEN IS CLEAN AND DRY. BILATERAL PEDAL PULSES BY DOPPLER. RIGHT LOWER LEG SWOLLEN AND TIGHT. ENGLE CATHETER.
--- NOTE | 2016-07-13 08:10 | CN ---
PATIENT NAME:AALIYAH CONNORS MEDICAL RECORD: [id number] : 39 [facility] ADMIT DATE: 07/10/16 ACCOUNT: [id number] CONSULTING PHYSICIAN: TERRIE BECKER DO REFERRING PHYSICIAN: JOSELUIS SMYTH MD DATE OF CONSULTATION: 07/12/2016 HISTORY OF PRESENT ILLNESS: A 80-year-old male admitted to Dr. Smyth for revascularization of the right lower extremity. Consult for medical management, hypertension, rheumatoid arthritis, and hyperlipidemia. CURRENT MEDICATIONS: Methotrexate 2.5 seven tablets every , Plavix 75 mg daily, metoprolol 25 mg p.o. daily, hydrocodone p.r.n. severe pain, aspirin 81 mg daily, tramadol 50 mg q.6 hours p.r.n. pain, folic acid 1 mg daily. PAST MEDICAL HISTORY: Significant for cardiovascular disease, peripheral vascular disease, carotid vascular disease, history of quadruple bypass, aortic valve replacement, carotid endarterectomy, also history of rheumatoid arthritis, hyperlipidemia. ALLERGIES: ATORVASTATIN, LIPITOR, CRESTOR, AND PRAVACHOL. REVIEW OF SYSTEMS: GENERAL: No reported change in weight or appetite. HEENT: No cephalgia, visual changes, tinnitus, epistaxis or dysphagia. CARDIOVASCULAR: Denies present chest pain, denies palpitations. History as above. PULMONARY: Denies hemoptysis, denies night sweats. GASTROINTESTINAL: Denies hematemesis, hematochezia or melena. GENITOURINARY: Denies dysuria. MUSCULOSKELETAL: No acute changes including cardiovascular or severe peripheral vascular disease. Unable to revascularize from above as discussed with Dr. Smyth ____ notes. Interventional radiology was consulted to see if they can open a blood flow starting distally and moving proximally. Again, the patient is presently in the ICU with heparin to maintain minimal flow. ENDOCRINE: Denies polyuria, polydipsia or polyphagia. MUSCULOSKELETAL: Also severe rheumatoid arthritis, medicines as above. PHYSICAL EXAMINATION: VITAL SIGNS: Temperature 97.7, blood pressure is 122/61, heart rate 83, respirations 24, O2 sats 94%. GENERAL: Alert and oriented, no present distress. present. HEENT: Normocephalic, atraumatic. Eyes: Pupils are equally round and reactive to light and accommodation. Extraocular muscles intact. Conjunctiva was not injected. Ears: Canals patent, TMs are intact. Nose: Nares patent without drainage. Throat: No erythema, no exudates. NECK: Supple. No lymphadenopathy, no JVD. HEART: Regular rate and rhythm. No S3 or S4, no rub. LUNGS: Clear to auscultation bilaterally. Breathing is nonlabored. ABDOMEN: Soft, nontender, bowel sounds positive. EXTREMITIES: Present times 4, deformity to the hands and fingers consistent with advanced rheumatoid arthritis. LABORATORY DATA: PTT is 60.3. CBC shows a white count of 4.2, hemoglobin 9.4, hematocrit 28.1, and platelets 114. Chemistry shows a sodium of 140, potassium CONSULT REPORT [id number] AALIYAH CONNORS C 3.8, chloride 105, bicarbonate 28.4, BUN 13, creatinine 1.1, glucose 92, AST 16, ALT 15, alkaline phosphatase 67, albumin 3.2. DIAGNOSTIC DATA: Chest x-ray, no cardiopulmonary disease. ASSESSMENT AND PLAN: 1. Severe peripheral vascular disease, right lower extremity. Interventional radiology consulted. 2. Rheumatoid arthritis. Continue current medications. 3. Hypertension. Continue current medications. 4. Thrombocytopenia heparin-induced, presently stable. We will monitor. I appreciate this consult. We will follow accordingly. TRANSINT:[id number] Voice Confirmation ID: [id number] DOCUMENT ID: [id number] TERRIE BECKER DO at 0810 CC: [id number] DICTATION DATE: 07/12/16 1229 PROJECT STRUCTURAL ENGINEER: 07/12/16 2144 ADM IN [id number] [place] [address]
--- NOTE | 2016-07-13 09:00 | NUR ---
AT BEDSIDE. PT HAS EATEN ALL OF BREAKFAST.
--- NOTE | 2016-07-13 10:18 | NUR ---
NUTRITION MONITORING & EVAL CHART REVIEWED, SPOKE WITH NURSING. REPORTS PT TOLERATING MEALS. 100% INTAKE BREAKFAST. CONTINUES TO BE ASSESSED AT LOW NUTRITIONAL RISK. RD FOLLOWING
--- NOTE | 2016-07-13 11:07 | NUR ---
PT SLEEPING. NO DISTRESS NOTED. BED LOW. CALL LIGHT IN REACH.
--- NOTE | 2016-07-13 12:30 | NUR ---
PT FULL LINEN CHANGE DUE TO BLOOD ON BEDDING FROM LINE BEING FOUND UNATTACHED TO PT AT BLOOD PORT. FAMILY MEMBER HAD LINE IN HIS HAND TO ATTEMPT TO HALT BLOOD.
--- NOTE | 2016-07-13 14:38 | NUR ---
PT REPOSITIONED PER REQUEST AND ADDITIONAL PILLOW PLACED UP UNDER RIGHT LOWER LEG. TELEMETRY ELECTRODES REPLACED DUE TO FALSE TACHY READING WITH PATIENT MOVEMENT. WAS SHOWING HR 150'S WHILE PT USING INCENTIVE SPIROMETRY. PADS PLACED AND HR SHOWS 80'S AND READABLE RHTYHM.
--- NOTE | 2016-07-13 16:00 | NUR ---
PT PEDAL PULSES LOCATED WITH DOPPLER IN LEFT AND RIGHT.
--- NOTE | 2016-07-13 21:10 | NUR ---
NO VISITORS, PT DENIES PAIN OR NEEDS. VSS - TITRATING CLEVIPREX PER MD ORDER. ALARMS ON.
--- NOTE | 2016-07-13 23:08 | NUR ---
REASSESSMENT PER FLOWSHEET, NO ACUTE CHANGES. PT AWAKENS EASILY, DENIES PAIN. HEELS REMAIN BRIDGED, FOOT CRADLE IN USE, PT ASSISTED TO L SIDE WITH PILLOWS. VSS. C/L IN REACH..
[2016-07-14] VITALS (33 sets, daily range): BP systolic 108–167; BP diastolic 50–88
--- NOTE | 2016-07-14 01:39 | NUR ---
PT RESTING QUIETLY, NOTED PERIODS OF SLEEP APNEA. O2 2L NC PLACED. WILL CONT CLOSE MONITORING.
--- NOTE | 2016-07-14 03:16 | NUR ---
REASSESSMENT PER FLOWSHEET, NO ACUTE CHANGES. PT AWAKENS EASILY, DENIES PAIN OR NEEDS. AM LAB DRAWN.
[2016-07-14 06:21] LABS: BASOPHILS 0 % (0.0-2.0); EOSINOPHILS 5.5 % (0-7); HEMATOCRIT 32.3 % (42.0-54.0); HEMOGLOBIN 10.7 g/dL (13.5-17.5); IMMATURE GRANULOCYTES 0.3 % (0-5); MCH 32.8 pg (26.0-34.0); MCHC 33.1 g/dL (31.0-37.0); MCV 99.1 fL (80.0-100.0); MONOCYTES 11.3 % (2-11); NEUTROPHILS 68.9 % (40-80); PLATELET COUNT 115 10x3/uL (130-400); RBC 3.26 10x6/uL (4.20-6.10); RDW 13.6 % (11.5-14.5)
[2016-07-14 06:36] LABS: ALKALINE PHOSPHATASE 84 U/L (46-116); CALC OSMOLALITY 271 mosm/kg (275-300); CALCIUM 8.3 mg/dL (8.5-10.1); CARBON DIOXIDE 28.2 mmol/L (21.0-32.0); CHLORIDE - SERUM 103 mmol/L (98-107); GLUCOSE 90 mg/dL (74-106); POTASSIUM - SERUM 3.8 mmol/L (3.5-5.1); PROTEIN - SERUM 5.9 g/dL (6.4-8.2); SODIUM 137 mmol/L (136-145); UREA NITROGEN 8 mg/dL (7-18); eGFR NON AFRICAN AMERICAN 77 mL/min (90-120)
--- NOTE | 2016-07-14 06:44 | NUR ---
PRE-OP BATH AND CHG WIPES USED. ENGLE CARE. DENTURES REMOVED - CLEANED AND ON COUNTER IN DENTURE CUP.
[2016-07-14 06:48] LABS: ALT (SGPT) 44 U/L (10-68)
[2016-07-14 07:36] LABS: INR 0.97 (0.85-1.17); PROTIME 12.7 SECONDS (11.6-15.0)
--- NOTE | 2016-07-14 08:00 | NUR ---
SHIFT ASSESSMENT VIA FLOWSHEET, SEE FOR DETAILS.
--- NOTE | 2016-07-14 08:05 | NUR ---
NAHUM WITH IR HERE TO SEE PT, SPOKE WITH DR SARMIENTO VIA PHONE OK FOR PT TO HAVE ASA AND PLAVIX THIS AM.
--- NOTE | 2016-07-14 10:33 | NUR ---
PT OFF UNIT VIA BED FOR IR PROCEDURE.
--- NOTE | 2016-07-14 12:00 | NUR ---
PT REMAINS OFF UNIT FOR PROCEDURE AT THIS TIME.
--- NOTE | 2016-07-14 13:25 | NUR ---
REPORT RECEIVED FROM DARIO SIMON RN.
--- NOTE | 2016-07-14 13:45 | NUR ---
PT RETURNED FROM IR VIA BED, ICU MONITORS CONNECTED. FAMILY AT BEDSIDE, UPDATED. VSS, SR ON CM. RIGHT ANKLE INCISION DSG CDI, WNL. LEFT GROIN INCISION DSG CDI, WNL. PT VERBALIZES UNDERSTANDING OF NEED TO KEEP LEG STRAIGHT X6 HOURS. CALL LIGHT WITHIN REACH.
--- NOTE | 2016-07-14 14:00 | NUR ---
LEFT GROIN AND RIGHT ANKLE INCISIONS WNL, DSG CDI. PEDAL PULSES PALPABLE, EXREMITIES WARM.
--- NOTE | 2016-07-14 15:30 | NUR ---
REASSESSMENT VIA FLOWSHEET, SEE FOR DETAILS.
--- NOTE | 2016-07-14 17:40 | NUR ---
DR SMYTH HERE TO MAKE EVENING ROUNDS. PT INCISIONS INSPECTED. PT VOICES NO ADDITONAL NEEDS AT THIS TIME. VSS.
--- NOTE | 2016-07-14 19:40 | NUR ---
REPORT REC'D AND CARE ASSUMED, REC'D PT ON ROOM AIR RESTING IN BED EYES CLOSED, AWAKENS TO VERBAL STIMULI, ORIENTED X 4, LEFT A/C PIV SALINE LOCKED, LDLSCL DRSG CDI WITH PLASMALYTE @ 50CC/HR AND CLEVIPREX @ 4MG/HR OR 8CC, LEFT GROIN DRSG CDI, LOWER ABD DRSG CDI, CRITICORE ENGLE PATENT DRAINING CLEAR YELLOW URINE, RIGHT LEG AND FOOT WITH GENERALIZED EDEMA, SKIN SHINY, DRSG TO RIGHT ANKLE CDI, DP PULSE BY DOPPLER, LEFT DP PULSE BY DOPPLER, PT DENIES PAIN STATES " I AM READY TO MOVE AROUND WHEN THE TIME COMES", DENIES NEEDS, SR UP X 2, BED IN LOW POSITION, CALL LIGHT IN REACH.
--- NOTE | 2016-07-14 20:50 | NUR ---
CLEVIPREX WEANED OFF AT THIS TIME, PT RESTING IN BED EYES CLOSED, NO DISTRESS NOTED.
--- NOTE | 2016-07-14 21:00 | NUR ---
EVENING MEDS GIVEN WITH SIPS OF WATER AFTER PT REPOSITIONED IN BED AND HOB RAISED, EXTRA BLANKETS REMOVED FOR PT COMPLAINTS OF BEING HOT, NO FURTHER NEEDS VOICED.
--- NOTE | 2016-07-14 23:15 | NUR ---
REASSESSMENT COMPLETED, PT ASSISTED ONTO LEFT SIDE SUPPORTED WITH PILLOW, PT DENIES PAIN, PULSES REMAIN TO RIGHT FOOT BY DOPPLER, LEG AND FOOT REMAIN WARM TO TOUCH, SR UP X 2, CALL LIGHT IN REACH.
[2016-07-15] VITALS (23 sets, daily range): BP systolic 113–159; BP diastolic 30–95
--- NOTE | 2016-07-15 01:30 | NUR ---
PT RESTING ON SIDE SLEEPING, BP STABLE, WILL CONT TO MONITOR FOR CHANGES.
--- NOTE | 2016-07-15 03:30 | NUR ---
NO CHANGES REASSESSMENT, RIGHT LOWER EXT WARM TO TOUCH, PULSES BY DOPPLER, VSS.
--- NOTE | 2016-07-15 06:00 | NUR ---
NO VISITORS IN AT THIS TIME, PT REPOSITIONED UP IN BED FOR COMFORT, ICE WATER PROVIDED, VSS.
[2016-07-15 07:57] LABS: HEMATOCRIT 31.6 % (42.0-54.0); HEMOGLOBIN 10.4 g/dL (13.5-17.5); MCH 32.9 pg (26.0-34.0); MCHC 32.9 g/dL (31.0-37.0); MEAN PLATELET VOLUME 11.8 fL (7.4-10.4); RBC 3.16 10x6/uL (4.20-6.10); RDW 13.6 % (11.5-14.5); WBC 4.7 10x3/uL (4.8-10.8)
--- NOTE | 2016-07-15 08:00 | NUR ---
SHIFT ASSESSMENT VIA FLOWSHEET, SEE FOR DETAILS. VSS.
[2016-07-15 08:01] LABS: ANION GAP 13.5 mmol/L (8-16); BILIRUBIN - TOTAL 0.71 mg/dL (0.2-1.3); CALCIUM 8.5 mg/dL (8.5-10.1); CARBON DIOXIDE 25.4 mmol/L (21.0-32.0); CREATININE - SERUM 1.1 mg/dL (0.6-1.3); POTASSIUM - SERUM 3.9 mmol/L (3.5-5.1); PROTEIN - SERUM 5.9 g/dL (6.4-8.2)
--- NOTE | 2016-07-15 09:04 | NUR ---
NUTRITION MONITORING & EVAL CHART REVIEWED, PT VISIT. PT WITH GOOD PO INTAKE PRIOR TO CURRENT NPO STATUS. NURSING STATES SHE WILL CHECK ON DIET LATER THIS AM & RESUME IF APPROPRIATE. RD FOLLOWING
--- NOTE | 2016-07-15 09:20 | NUR ---
AT BEDSIDE, UPDATED BY DR SMYTH DURING HIS ROUNDS.
--- NOTE | 2016-07-15 10:35 | NUR ---
PT AMBULATED WITH PHYSICAL THERAPY, RETURNED TO CHAIR AT BEDSIDE.
--- NOTE | 2016-07-15 11:15 | NUR ---
REASSESSMENT VIA FLOWSHEET, SEE FOR DETAILS.
--- NOTE | 2016-07-15 12:50 | NUR ---
PT AMBULATED 350FT.
--- NOTE | 2016-07-15 13:53 | NUR ---
LATE ENTRY FOR 07/14/16 AT 10:47AM: Patient Name: AALIYAH CONNORS Admission Status: Elective Accout number: [id number] Admission Date: 07-10-2016 : 1935 Admission Diagnosis: Attending: LEA Current LOS: 4 Anticipated DC Date: 07-17-2016 Planned Disposition: Home Primary Insurance: MEDICARE A & B Is the patient Alert and Oriented? Yes * How many steps to enter\exit or inside your home? ONE * PCP DR BECKER * Pharmacy [facility] [address] * Preadmission Environment Home with Family * ADLs Independent * Equipment Cane Other * Other Equipment GRAB BARS IN SHOWER * List name and contact numbers for known caregivers / representatives who currently or will assist patient after discharge: SAMINA CONNORS, SPOUSE, (CELL) * Community resources currently utilized None * Additional services required to return to the preadmission environment? No * Can the patient safely return to the preadmission environment? Yes * Has this patient been hospitalized within the prior 30 days at any hospital? Yes Discharge Planning Comments: CM MET WITH PATIENT TO ASSESS DC PLAN/NEEDS. PT STATED HE LIVES AT HOME WITH IS AND IS INDEPENDENT IN HIS CARE/ADL'S. HIS WILL DRIVE HIM HOME AT D/C. STATED HE DOES NOT FEEL HE WILL REQUIRE ANY HH, REHAB SERVICES OR DME AT D/C. STATED HE IS AMBULATING WELL WITH PHYSICAL THERAPY AND PLANS TO RETURN HOME WITH SPOUSE AT DC. CM WILL FOLLOW AND ASSIST NEEDED WITH ANY DC NEEDS THEY ARISE. DC IMM SIGNED AND PLACED IN PT'S CHART. Engine Lathe Set Up Operator Tool: Janelle Randolph RN, CM
--- NOTE | 2016-07-15 15:15 | NUR ---
REASSESSMENT VIA FLOWSHEET, SEE FOR DETAILS.
--- NOTE | 2016-07-15 19:25 | NUR ---
REC'D PT RESTING ON ROOM AIR IN BED WATCHING TV, AWAKE, ALERT, ORIENTED X 3 LDLSCL DRSG CDI BOTH PORTS SALINE LOCKED, LOWER MIDLINE ABD DRSG CDI, LEFT GROIN DRSG CDI, BRUISING NOTED, RIGHT ANKLE DRSG CDI, BILAT FEET WARM TO TOUCH, PULSES BY DOPPLER, PT DENIES PAIN OR NEEDS, SR UP X 2, CALL LIGHT IN REACH.
--- NOTE | 2016-07-15 20:45 | NUR ---
EVENING MEDS GIVEN, SBP ELEVATED 150'S, HYDRALAZINE 50MG GIVEN PO PRN AT THIS TIME.
--- NOTE | 2016-07-15 23:00 | NUR ---
REASSESSMENT COMPLETED, BP IMPROVED, PT RESTING IN BED EYES CLOSED, VSS, WILL CONT TO MONITOR FOR CHANGES.
[2016-07-16] VITALS (10 sets, daily range): BP systolic 118–151; BP diastolic 56–78
--- NOTE | 2016-07-16 01:00 | NUR ---
NO CHANGES IN STATUS AT THIS TIME.
--- NOTE | 2016-07-16 03:00 | NUR ---
REASSESSMENT COMPLETED, NO CHANGES FROM PREVIOUS ASSESSMENT, PT DENIES NEEDS OR WANTS, VSS.
--- NOTE | 2016-07-16 04:30 | NUR ---
PT ASSISTED TO REPOSITION UP IN BED FOR COMFORT, PT DENIES PAIN OR OTHER NEEDS, BP STABLE.
--- NOTE | 2016-07-16 06:00 | NUR ---
NO VISITORS IN AT THIS TIME, PT RESTING IN BED EYES CLOSED, VSS.
--- NOTE | 2016-07-16 07:00 | NUR ---
PT REPORT REC'D, PT CARE ASSUMED. PT AAOX4 PT SITTING UP IN BED. NO C/O PAIN, VSS, ROOM AIR. SHIFT ASSESSMENT COMPELTED, SEE FLOW SHEET. ROOM FREE OF CLUTTER, CALL LIGHT IN REACH. WILL CONTINUE TO MONITOR PT.
--- NOTE | 2016-07-16 08:39 | NUR ---
PHYSICAL THERAPY WITH PT, PT AMBULATED APPROX 500 FT, PT TOLERATED WELL, WILL CONTINUE TO MONITOR PT.
[2016-07-16] MEDS ORDERED: ELIQUIS5 MG PO (09:22)
[2016-07-16] MEDS ORDERED: COZAAR50 MG PO (09:23)
--- NOTE | 2016-07-16 10:45 | NUR ---
WHEELED PT OUT TO PT FAMILY CAR. 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 D/C INSTRUCTIONS GIVEN.
--- NOTE | 2016-07-26 12:51 | DS ---
PATIENT:AALIYAH ROLON :[birth year] MEDICAL RECORD: [id number] DISCHARGE SUMMARY ADMISSION DATE: 07/10/16 DISCHARGE DATE: 07/16/16 DISCHARGE DIAGNOSES: 1. 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 2. 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 3. Bilateral carotid artery disease. 4. Essential hypertension. 5. Aortic valve replacement. 6. Atherosclerosis of the tetlin vessels of the coronary without angina. 7. Rheumatoid arthritis. 8. Hyperlipidemia. 9. Thrombocytopenia. 10. Non-rheumatic aortic valve disorder. 11. Atrial premature contractions. DISCHARGE MEDICATIONS: Please see medical reconciliation form. DISPOSITION: The patient has appointment to see Dr. Smyth in 2-3 weeks. HOSPITAL COURSE: Mr. Aaliyah Rolon was admitted to the hospital with critical limb ischemia and rest pain, right lower extremity. He underwent endovascular revascularization of his right lower extremity. We were able to cross the chronic total occlusion superficial femoral artery and place stents. He, however, had distal disease that we could not cross from above. Therefore, Dr. Holder with interventional radiology was able to access the pedal arteries and revascularized from below. This was successful and he was able to provide good runoff to the foot. The patient's symptoms improved greatly and he is able to walk and ambulate. He will be maintained on Eliquis, statin and Plavix. He has been given discharge instructions and wound precautions and will be seen as above. TRANSINT:[id number] Voice Confirmation ID: [id number] DOCUMENT ID: [id number] JOSELUIS SMYTH MD at 1251 CC: [id number] DICTATION DATE: 07/25/16 1119 PROCESS CHEESE COOKER: 07/25/16 1204 DIS IN 07/16/16 [id number] [place] [address]
== END 2016-07-16 10:45 | disposition home or self-care (01) | DRG 271 ==
LOC: D.CVICU 08:12 → D.SDCHOLD 08:12 → D.CVICU 14:33
PROVIDERS: Radiology Diagnostic Radiology; ADMIT Internal Medicine Cardiovascular Disease
PROC: 047 Lower Arteries, Dilation (ICD-10-PCS; 2016-07-10)
PROC: 04CM3ZZ Extirpation of Matter from Right Popliteal Artery, Percutaneous Approach (ICD-10-PCS; 2016-07-10)
PROC: B41G1ZZ Fluoroscopy of Left Lower Extremity Arteries using Low Osmolar Contrast (ICD-10-PCS; 2016-07-10)
PROC: 04CR3ZZ Extirpation of Matter from Right Posterior Tibial Artery, Percutaneous Approach (ICD-10-PCS; 2016-07-10)
PROC: B41F1ZZ Fluoroscopy of Right Lower Extremity Arteries using Low Osmolar Contrast (ICD-10-PCS; 2016-07-10)
PROC: 047 Lower Arteries, Dilation (ICD-10-PCS; principal; 2016-07-10 12:00)
PROC: 04CT3ZZ Extirpation of Matter from Right Peroneal Artery, Percutaneous Approach (ICD-10-PCS; 2016-07-14)
PROC: 047M3DZ Dilation of Right Popliteal Artery with Intraluminal Device, Percutaneous Approach (ICD-10-PCS; 2016-07-14)
PROC: 047T3ZZ Dilation of Right Peroneal Artery, Percutaneous Approach (ICD-10-PCS; 2016-07-14)
PROC: 047R3ZZ Dilation of Right Posterior Tibial Artery, Percutaneous Approach (ICD-10-PCS; 2016-07-14)
DX: I70.221 Atherosclerosis of native arteries of extremities with rest pain, right leg (principal); I70.92 Chronic total occlusion of artery of the extremities; I99.8 Other disorder of circulatory system; I65.23 Occlusion and stenosis of bilateral carotid arteries; I10 Essential (primary) hypertension; I25.10 Atherosclerotic heart disease of native coronary artery without angina pectoris; M06.9 Rheumatoid arthritis, unspecified; E78.5 Hyperlipidemia, unspecified; D75.82 Heparin induced thrombocytopenia (HIT); I35.9 Nonrheumatic aortic valve disorder, unspecified; I49.1 Atrial premature depolarization

== ENCOUNTER 2016-07-23 19:58 | Emergency (ER) | payer MEDICARE, OTHER ==
[2016-07-10 18:32] VITALS: BMI 24.3
[~2016-07-23 19:58] MED LIST changes: +COZAAR50 MG PO; +ELIQUIS5 MG PO; +HYDRALAZINE HCL50 MG PO; +PRESERVISION AR1 CAP PO
[2016-07-23 21:59] LABS: ALBUMIN 3.1 g/dL (3.4-5.0); ALKALINE PHOSPHATASE 87 U/L (46-116); ALT (SGPT) 46 U/L (10-68); BILIRUBIN - TOTAL 0.43 mg/dL (0.2-1.3); CALC OSMOLALITY 275 mosm/kg (275-300); CALCIUM 8.6 mg/dL (8.5-10.1); CARBON DIOXIDE 27.2 mmol/L (21.0-32.0); CHLORIDE - SERUM 101 mmol/L (98-107); CREATININE - SERUM 1.3 mg/dL (0.6-1.3); POTASSIUM - SERUM 4.4 mmol/L (3.5-5.1); PROTEIN - SERUM 6.4 g/dL (6.4-8.2); SODIUM 136 mmol/L (136-145); UREA NITROGEN 22 mg/dL (7-18); eGFR NON AFRICAN AMERICAN 57 mL/min (90-120)
[2016-07-23 22:12] LABS: BASOPHILS 0.2 % (0.0-2.0); EOSINOPHILS 1.6 % (0-7); HEMATOCRIT 27.1 % (42.0-54.0); HEMOGLOBIN 8.9 g/dL (13.5-17.5); IMMATURE GRANULOCYTES 0.3 % (0-5); LYMPHOCYTES 9.5 % (15-50); MCH 32.2 pg (26.0-34.0); MCHC 32.8 g/dL (31.0-37.0); MCV 98.2 fL (80.0-100.0); MEAN PLATELET VOLUME 11.5 fL (7.4-10.4); MONOCYTES 11.2 % (2-11); NEUTROPHILS 77.2 % (40-80); PLATELET COUNT 241 10x3/uL (130-400); RBC 2.76 10x6/uL (4.20-6.10); WBC 6.4 10x3/uL (4.8-10.8)
[2016-07-23 22:22] LABS: GLUCOSE 119 mg/dL (74-106)
[2016-07-23 22:28] LABS: AMYLASE - SERUM 60 U/L (25-115); CHOL - HDL RATIO 4.8 ratio (2.3-4.9); CHOLESTEROL, TOTAL 157 mg/dL (0-200); CKMB 1.3 U/L (0.0-3.6); CREATINE KINASE 51 UL (21-232); HDL CHOLESTEROL 33 mg/dL (32-96); LDL CHOLESTEROL 111 mg/dL (0-100); LDL-HDL RATIO 3.4 ratio (1.5-3.5); LIPASE 315 U/L (73-393); PRO BNP 2900 pg/mL (0-450); TRIGLYCERIDE 65 mg/dL (30-200); TROPONIN-I 0.019 ng/mL (0.000-0.060)
== END 2016-07-23 23:19 | disposition home or self-care (01) ==
LOC: D.ER 19:58
PROVIDERS: Family Medicine
DX: R11.0 Nausea (principal); I25.10 Atherosclerotic heart disease of native coronary artery without angina pectoris

== ENCOUNTER → 2016-08-05 12:38 | Outpatient (CLI) | payer MEDICARE, OTHER ==
[2016-07-10 18:32] VITALS: BMI 24.3
== END | disposition home or self-care (01) ==
LOC: D.CT 12:38
DX: R06.02 Shortness of breath (principal)

== ENCOUNTER 2016-09-18 08:54 | Outpatient (CLI) | payer MEDICARE, OTHER ==
[~2016-09-18] VITALS: Ht 180.3 cm; Wt 75.0 kg
[2016-09-18] MEDS ORDERED: FERRETTS324 MG PO (12:39)
[2016-09-18] MEDS ORDERED: PROTONIX40 MG PO (12:39)
[2016-09-18 12:42] VITALS: BP 109/57; Ht 180.3 cm; Wt 75.0 kg
--- NOTE | 2016-09-18 12:47 | NUR ---
1215 IV STARTED WITH 20 GAUGE NEEDLE TO LEFT ARM WITHOUT PROBLEMS NOTED 1230 STARTED BLOOD PER PUMP SLOWLY, PATIENT INSTRUCTED TO CALL IF ANY REACTION NOTED. VSS MONITORED
--- NOTE | 2016-09-18 14:30 | NUR ---
1430 REPORT FROM FRANCESCO ALVAREZ R.N. BLOOD INFUSING VIA LEFT ARM IV NO REDNESS OR SWELLING. TOLERATING BLOOD WITHOUT REACTIONS NOTED. OFFERED DRINK SNACK BUT REFUSED.
--- NOTE | 2016-09-18 18:46 | NUR ---
1455 BLOOD 1ST UNIT COMPLETED AND FLUSHED WITH SALINE.NO REDNESSOR SWELLING TO IV SITE.
--- NOTE | 2016-09-18 18:49 | NUR ---
1523 2ND UNIT OF BLOOD CHECKED BY 2 NURSES AND NEW BLOOD TUBING NORMA.
--- NOTE | 2016-09-18 18:49 | NUR ---
1517 LASIX GIVEN IV.
--- NOTE | 2016-09-18 18:50 | NUR ---
1622 TOLERATING BLOOD WITHOUT S/S OF BLOOD REACTION NOTED.ALBERTO FELICIANO SERVED.
--- NOTE | 2016-09-18 18:51 | NUR ---
1814 IV DCD CATHETER INTACT. WENT OVER DISCHARGE INSTRUCTIONS BLOOD REACTION SHEET AND VERBALLY UNDERSTANDS.
--- NOTE | 2016-09-18 18:51 | NUR ---
1732 2ND UNIT OF BLOOD COMPLETED AND FLUSHED WITH SALINE.
--- NOTE | 2016-09-18 18:51 | NUR ---
1722 TOLERATING BLOOD WITHOUT S/S OF BLOOD REACTIONS NOTED.
--- NOTE | 2016-09-18 18:52 | NUR ---
1830 TO HOME VIA W/C WITH .
== END 2016-09-18 18:30 | disposition home or self-care (01) ==
LOC: D.OPS 08:54
DX: D64.9 Anemia, unspecified (principal)

== ENCOUNTER → 2017-07-05 09:43 | Outpatient (CLI) | payer MEDICARE, OTHER ==
[2016-09-18 12:42] VITALS: BMI 23.0
[~2017-07-05 09:43] MED LIST changes: +FERRETTS324 MG PO; +PROTONIX40 MG PO
== END | disposition home or self-care (01) ==
LOC: D.US 09:43
DX: I71.4 Abdominal aortic aneurysm, without rupture (principal)

== ENCOUNTER → 2017-11-02 10:59 | Outpatient (CLI) | payer MEDICARE, OTHER ==
[2016-09-18 12:42] VITALS: BMI 23.0
[~2017-11-02 10:59] MED LIST changes: +PREDNISONE5 MG PO
== END | disposition home or self-care (01) ==
LOC: D.US 10:59
DX: I73.9 Peripheral vascular disease, unspecified (principal)

== ENCOUNTER 2017-11-18 07:03 | Outpatient (CLI) | payer MEDICARE, OTHER ==
[~2017-11-18] VITALS: Ht 180.3 cm; Wt 79.5 kg
--- NOTE | ~2017-11-18 | HEMODYNAMI ---
PATIENT:AALIYAH CONNORS MEDICAL RECORD: [id number] : 39 LOCATION:[facility] ADMISSION DATE: 11/18/17 Generatedon:11/18/201710:18 Patient name: AALIYAH CONNORS Patient #: [id number] SSN: D OB: 1935 Date of study: 11/18/2017 Page: Of Hemodynamic Procedure Report Patient Data Patient Demographics Procedure consent was obtained First Name: AALIYAH Gender: Male Last Name: DORY : 1935 Middle Initial: C Age: 81 year(s) Patient #: [id number] Race: Unknown Additional ID: [id number] Contact details [address]: [address] [place] [address] [address] State: [place] City: [place] Zip code: [address] Past Medical History Allergies Allergen Reaction Date Comments Reported Other allergy 11/18/2017 CRESTOR, LIPITOR, PRAVASTATIN Admission Admission Data Admission Date: 11/18/2017 Admission Time: 7:03 Lab Results Lab Result Date: 11/18/2017 Lab Result Time: 0:00 Biochemistry Name Units Result Min Max BUN mg/dl 22 --(----)-* 7 18 Creatinine mg/dl 1.4 --(----)*- 0.6 1.3 CBC Name Units Result Min Max Hemoglobin g/dl 12.5 *-(----)-- 13.5 17.5 Procedure Procedure Types Cath Procedure Peripheral Cath Diagnostic Procedure Cath Peripheral Asheh-Kzlambn-Wmv-Off Procedure Description Procedure Date Procedure Date: 11/18/2017 Procedure Start Time: 10:00 Procedure End Time: 10:18 Procedure Staff Name Function Erickson Yoder MD Performing Physician [place] RT Monitor Joyce Rivera RT Scrub Kimberlyn Currie RN Nurse Procedure Data Cath Procedure Fluoroscopy Diagnostic fluoroscopy Total fluoroscopy Time: 2.2 time: 2.2 min min Diagnostic fluoroscopy Total fluoroscopy dose: 322 dose: 322 mGy mGy Contrast Material Contrast Material Type Amount (ml) Isovue 300 128 Entry Location Entry Primary Successful Side Size Upsize Upsize Entry Closure Succes sful Closure Location (Fr) 1 (Fr) 2 (Fr) Remarks Device Remarks Femoral Left 5 Fr Exoseal artery Estimated blood loss: 5 ml Diagnostic catheters Device Type Used For End Catheter Placement DIAGNOSTIC UF 5Fr Procedure catheter ([id number]) Procedure Complications No complications Procedure Medications Medication Administration Route Dosage Oxygen NC 2 l/min Lidocaine 2% added to field 20 Heparin Flush Bag added to field 2 bags (1000units/500ml NS) 0.9% NaCl I.V. 100 ml/hr Versed I.V. 1 mg Fentanyl I.V. 50 mcg Versed I.V. 1 mg Fentanyl I.V. 50 mcg 0.9% NaCl I.V. bolus 300 ml Versed I.V. 1 mg Fentanyl I.V. 50 mcg Versed I.V. 1 mg Fentanyl I.V. 50 mcg Hemodynamics Rest HGB: 12.5 (g/dl) Heart Rate: 55 (bpm) Snapshots Pre Cath Intra NCS Post Cath Vital Signs Time Heart Resp SPO2 etCO2 NIBP (mmHg) Rhythm Pain Sedation Rate (ipm) (%) (mmHg) Status Level (bpm) 9:47:00 63 25 100 20.9 174/87(141) NSR 0 (11) 10(A) , No pain 9:50:53 67 18 96 20.9 172/82(134) NSR 0 (11) 10(A) , No pain 9:54:51 63 19 99 20 143/75(109) NSR 0 (11) 10(A) , No pain 9:58:42 65 18 98 35.8 134/73(108) NSR 0 (11) 9(A) , No pain 10:02:32 67 17 97 33.6 138/78(111) NSR 0 (11) 9(A) , No pain 10:06:48 66 18 99 13.4 119/65(100) NSR 0 (11) 9(A) , No pain 10:10:37 67 18 99 26.9 124/63(96) NSR 0 (11) 9(A) , No pain 10:14:49 67 17 100 18.6 149/79(115) NSR 0 (11) 10(A) , No pain Medications Time Medication Route Dose Verified Delivered Reason Notes Effe ctiveness by by 9:40:25 0.9% NaCl I.V. 300 Erickson Buffie Per bolus ml Paresh Currie RN physician 9:45:13 Oxygen NC 2 Erickson Buffie used for l/min Paresh Currie RN procedure 9:45:19 Lidocaine 2% added 20ml Erickson Erickson for local to vial Paresh Yoder MD anesthetic field 9:45:24 Heparin Flush added 2 Erickson Erickson used for Bag to bags Paresh Yoder MD procedure (1000units/500ml field NS) 9:51:45 Versed I.V. 1 mg Erickson Buffie for Paresh Currie RN sedation 9:51:50 Fentanyl I.V. 50 Erickson Buffie for mcg Paresh Currie RN sedation 9:55:37 Versed I.V. 1 mg Erickson Buffie for Paresh Currie RN sedation 9:55:40 Fentanyl I.V. 50 Erickson Buffie for mcg Paresh Currie RN sedation 10:01:43 Versed I.V. 1 mg Erickson Buffie for Paresh Currie RN sedation 10:01:47 Fentanyl I.V. 50 Erickson Buffie for mcg Paresh Currie RN sedation 10:02:30 0.9% NaCl I.V. 100 Erickson Buffie Per ml/hr Paresh Currie RN physician 10:06:52 Versed I.V. 1 mg Erickson Buffie for Paresh Currie RN sedation 10:06:55 Fentanyl I.V. 50 Erickson Buffie for mcg Paresh Currie RN sedation Procedure Log Time Note 9:30:43 Joyce Rivera RT(R) sent for patient. Start room use. 9:30:44 Time tracking: Regular hours (M-F 7:00 - 5:00) 9:30:48 Plan of Care:Hemodynamics will remain stable., Cardiac rhythm will remain stable., Comfort level will be maintained., Respiratory function will remain adequate., Patient/ family verbilizes understanding of procedure., Procedure tolerated without complication., Recovers from procedure without complications.. 9:30:51 Signed procedure consent form obtained from patient. 9:33:49 H&P Date Dictated: 11/11/2017 Within 30 days and on chart., H&P Addendum completed by physician on day of procedure. (MUST COMPLETE FOR ALL OUTPATIENTS). 9:34:24 Patient allergic to Other allergyCRESTOR, LIPITOR, PRAVASTATIN 9:35:54 Lab Result : BUN 22 mg/dl 9:35:54 Lab Result : Creatinine 1.4 mg/dl 9:35:54 Lab Result : Hemoglobin 12.5 g/dl 9:37:16 Patient received from Pre/Post Procedure Room to CCL 2 Alert and oriented. Tansferred to table in Supine position. 9:37:17 Warm blankets applied, and sonny hugger turned on for patient comfort. 9:37:18 Correct patient and procedure confirmed by team. 9:37:19 ECG and BP/O2 sat monitors applied to patient. 9:40:25 0.9% NaCl 300 ml I.V. bolus was administered by Kimberlyn Currie RN; Per physician; 9:45:13 Oxygen 2 l/min NC was administered by Kimberlyn Currie RN; used for procedure; 9:45:19 Lidocaine 2% 20ml vial added to field was administered by Erickson Yoder MD; for local anesthetic; 9:45:24 Heparin Flush Bag (1000units/500ml NS) 2 bags added to field was administered by Erickson Yoder MD; used for procedure; 9:45:44 Vital chart was started 9:45:45 Baseline sample Acquired. 9:45:50 Rhythm: sinus rhythm 9:45:51 Full Disclosure recording started 9:45:53 Pre-procedure instructions explained to patient. 9:45:54 Pre-op teaching completed and patient verbalized understanding. 9:45:55 Family in patients room. 9:45:56 Patient NPO since Midnight. 9:45:59 Is the patient allergic to Iodine/contrast media? No. 9:46:00 Is patient on blood thinner?Yes 9:46:03 ACC The patient was administered the following blood thiners within the last 24 hours: ACCPlavix 9:46:16 ELIQUIS LAST DOSE 7 9:46:18 Patient diabetic? No. 9:46:21 Previous problem with sedation/anesthesia? No ? 9:46:23 Snore? No 9:46:24 Sleep apnea? No 9:46:26 Deviated septum? No 9:46:27 Opens mouth fully? Yes 9:46:29 Sticks out tongue? Yes 9:46:30 Airway obstruction? No ? 9:46:34 Dentures? Yes PARTIALS 9:50:12 Pre procedure: right dorsailis pedis pulse 1+ Palpable, but thready & weak; easily obliterated 9:50:15 Pre procedure: left dorsailis pedis pulse 1+ Palpable, but thready & weak; easily obliterated 9:50:17 Patient pain scale 0/10 ?. 9:50:21 IV patent on arrival in left hand with 0.9% NaCl at [facility]. 9:50:22 Lab results completed and on chart. 9:50:25 Bilateral groins area was prepped with chlora-prep and draped in sterile fashion 9:50:26 Alarms reviewed by R. N. 9:50:26 Sharps counted by scrub and verified by R.N. 9:50:32 Use device set CATH PACK 9:50:34 ACIST Syringe ([id number]) opened to sterile field. 9:50:34 ACIST Hand Control (89629) opened to sterile field. 9:50:35 ACIST Manifold (62712) opened to sterile field. 9:50:35 Medline Cath Pack ([id number]) opened to sterile field. 9:50:36 Bag Decanter (2002S) opened to sterile field. 9:50:36 DIAGNOSTIC WIRE .035 260cm J wire ([id number]) opened to sterile field. 9:50:43 SHEATH 5FR Louisa ([id number]) opened to sterile field. 9:51:25 --------ALL STOP TIME OUT------ 9:51:25 Final Timeout: patient, procedure, and site verified with staff and physician. All members of the team are in agreement. 9:51:27 Bilateral groins site verified by team. 9:51:29 Physical assessment completed. ASA score P 2 - A patient with mild systemic disease as per Erickson Yoder MD. 9:51:32 Sedation plan: IV Moderate Sedation Medication:Versed, Fentanyl 9:51:45 Versed 1 mg I.V. was administered by Kimberlyn Currie RN; for sedation; 9:51:50 Fentanyl 50 mcg I.V. was administered by Kimberlyn Currie RN; for sedation; 9:55:37 Versed 1 mg I.V. was administered by Kimberlyn Currie RN; for sedation; 9:55:40 Fentanyl 50 mcg I.V. was administered by Kimberlyn Currie RN; for sedation; 9:59:55 Procedure started. 9:59:57 Zero performed for pressure channel P1 10:00:31 Local anesthetic to left femerol artery with Lidocaine 2% by Erickson Yoder MD.INITIAL ACCESS ONLY 10:01:43 Versed 1 mg I.V. was administered by Kimberlyn Currie RN; for sedation; 10:01:47 Fentanyl 50 mcg I.V. was administered by Kimberlyn Currie RN; for sedation; 10:01:58 A 5 Fr sheath was inserted into the Left Femoral artery 10:02:22 A DIAGNOSTIC UF 5Fr catheter ([id number]) was advanced over the wire and used for Procedure. 10:02:30 0.9% NaCl 100 ml/hr I.V. was administered by Kimberlyn Currie RN; Per physician; 10:06:52 Versed 1 mg I.V. was administered by Kimberlyn Currie RN; for sedation; 10:06:55 Fentanyl 50 mcg I.V. was administered by Kimberlyn Currie RN; for sedation; 10:08:26 Abdominal angiogram w/ runoff was performed. 10:09:08 Left leg runoff performed. 10:09:56 Right leg runoff performed. 10:11:18 Catheter removed. 10:11:35 SHEATH 5FR Louisa ([id number]) opened to sterile field. 10:12:38 Sheath removed intact; hemostasis achieved with Exoseal to the Left Femoral artery. 10:12:43 Procedure ended.(Physican Out) 10:14:11 Contrast amount:Isovue 300 128ml. 10:15:44 Fluoroscopy dose: 322 mGy 10:15:44 Flurop Dose total: 322 10:15:46 Fluoroscopy time 02.20 minutes. 10:15:51 Post-op/insertion site Left Femoral artery dressed using a 4 x 4 and Tegaderm. 10:16:11 Post left femerol artery:stable, soft, clean and dry 10:16:45 Post-procedure physical assessment completed. ASA score P 2 - A patient with mild systemic disease as per Erickson Yoder MD. 10:16:47 Post procedure rhythm: unchanged. 10:16:49 Estimated blood loss: 5 ml 10:16:50 Post procedure instruction explained to patient.Patient verbalizes understanding. 10:16:51 Patient needs reinforcement of post procedure teaching. 10:17:54 Procedure and supply charges have been captured, reviewed, submitted and are correct. 10:17:56 Procedure Complication : No complications 10:18:01 Vital chart was stopped 10:18:01 See physician's report for complete and final results. 10:18:03 Report given to Pre/Post Procedure Room. 10:18:06 Patient transfered to Pre/Post Procedure Room with Bed. 10:18:07 Procedure ended. 10:18:07 Full Disclosure recording stopped 10:18:10 End room use (Document Last) Device Usage Item Name Manufacture Quantity Catalog Hospital Part Current Minimal L ot# / Number Charge Number Stock Stock Serial# Code ACIST Acist 1 [id number] [id number] 171235 [id number] 20 Syringe Medical (98431) Systems Inc ACIST Hand Acist 1 48902 379119 811769 118723 5 Control Medical (89556) Systems Inc ACIST Acist 1 18831 956172 845815 946056 5 Manifold Medical (35955) Systems Inc Medline Cardinal 1 [id number] 644689 99867 984175 5 Cath Pack Health ([id number]) Bag Microtek 1 2001S 997151 59989 077163 5 Decanter Medical Inc. () DIAGNOSTIC St Bobby 1 695941 493790 656448 043045 30 WIRE .035 260cm J wire (675223) SHEATH 5FR Terumo 2 [id number] 823570 928507 490885 40 Louisa ([id number]) DIAGNOSTIC Cardinal 1 [id number] 432822 403906 652853 10 UF 5Fr Health catheter ([id number]) Signature Audit [place] Stage Time Signature Unsigned Intra-Procedure 11/18/2017 [place] 10:18:31 AM RT(R) Signatures Monitor : Chelita Park Signature : RT Date : Time : [place] [address]
[~2017-11-18 07:03] MED LIST changes: -PREDNISONE5 MG PO
[2017-11-18] MEDS ORDERED: PREDNISONE5 MG PO (07:42)
[2017-11-18 07:47] VITALS: BP 168/80; Ht 180.3 cm; Wt 79.5 kg
[2017-11-18 07:51] LABS: BASOPHILS 0 % (0-2); EOSINOPHILS 1.2 % (0-7); HEMATOCRIT 36.9 % (42.0-54.0); HEMOGLOBIN 12.5 g/dL (13.5-17.5); IMMATURE GRANULOCYTES 0.3 % (0-5); LYMPHOCYTES 8.3 % (15-50); MCH 34.8 pg (26.0-34.0); MCHC 33.9 g/dL (31.0-37.0); MCV 102.8 fL (80.0-100.0); MEAN PLATELET VOLUME 11.1 fL (7.4-10.4); MONOCYTES 8.2 % (2-11); RBC 3.59 10x6/uL (4.20-6.10); RDW 14.8 % (11.5-14.5); WBC 6.9 10x3/uL (4.8-10.8)
[2017-11-18 07:53] LABS: PLATELET COUNT 123 10x3/uL (130-400)
[2017-11-18 08:07] LABS: ANION GAP 12.6 mmol/L (8-16); CALCIUM 8.4 mg/dL (8.5-10.1); CARBON DIOXIDE 26.7 mmol/L (21.0-32.0); CREATININE - SERUM 1.4 mg/dL (0.6-1.3); POTASSIUM - SERUM 4.3 mmol/L (3.5-5.1)
== END 2017-11-18 12:35 | disposition home or self-care (01) ==
LOC: D.CATH 07:03
PROVIDERS: Internal Medicine Cardiovascular Disease
DX: I71.4 Abdominal aortic aneurysm, without rupture (principal); I70.219 Atherosclerosis of native arteries of extremities with intermittent claudication, unspecified extremity; Z01.812 Encounter for preprocedural laboratory examination

== ENCOUNTER → 2018-09-30 10:40 | Outpatient (CLI) | payer MEDICARE, OTHER ==
[2017-11-18 07:47] VITALS: BMI 24.4
[~2018-09-30 10:40] MED LIST changes: +PREDNISONE5 MG PO
== END | disposition home or self-care (01) ==
LOC: D.CT 10:40
PROVIDERS: ATTEND Internal Medicine Cardiovascular Disease
DX: I72.8 Aneurysm of other specified arteries (principal)

== ENCOUNTER → 2019-02-02 12:21 | Outpatient (CLI) | payer MEDICARE, OTHER ==
[2017-11-18 07:47] VITALS: BMI 24.4
== END | disposition home or self-care (01) ==
LOC: D.US 02-01 13:30
PROVIDERS: ATTEND Internal Medicine Cardiovascular Disease
DX: I65.23 Occlusion and stenosis of bilateral carotid arteries (principal)

== ENCOUNTER → 2019-03-29 12:44 | Outpatient (CLI) | payer MEDICARE, OTHER ==
[2017-11-18 07:47] VITALS: BMI 24.4
== END | disposition home or self-care (01) ==
LOC: D.CT 12:44
PROVIDERS: ATTEND Internal Medicine Cardiovascular Disease
DX: I65.23 Occlusion and stenosis of bilateral carotid arteries (principal)

== ENCOUNTER → 2019-07-07 09:10 | Outpatient (CLI) | payer MEDICARE, OTHER ==
[2017-11-18 07:47] VITALS: BMI 24.4
== END | disposition home or self-care (01) ==
LOC: D.HCCARDIO 09:10
PROVIDERS: ATTEND Internal Medicine Cardiovascular Disease
DX: I25.10 Atherosclerotic heart disease of native coronary artery without angina pectoris (principal)

== ENCOUNTER 2019-07-13 06:27 | Outpatient (CLI) | payer MEDICARE, OTHER ==
[~2019-07-13] VITALS: Ht 180.3 cm; Wt 77.5 kg
--- NOTE | ~2019-07-13 | HEMODYNAMI ---
PATIENT:AALIYAH CONNORS MEDICAL RECORD: [id number] : 39 LOCATION:D.CAT ADMISSION DATE: 07/13/19 Generatedon:07/13/20198:45 Patient name: AALIYAH CONNORS Patient #: [id number] SSN: [id number] : 1935 Date of study: 07/13/2019 Page: Of Hemodynamic Procedure Report Patient Data Patient Demographics Procedure consent was obtained First Name: AALIYAH Gender: Male Last Name: DORY : 1935 [facility] Initial: C Age: 83 year(s) Patient #: [id number] Race: SSN: [id number] Additional ID: [id number] Contact details [address]: [address] [place] [address] State: [place] City: [place] Zip code: [address] Past Medical History Performed procedures and imaging results Date Procedure Procedure Results Comments 07/07/2019 Stress testing Positive->Intermediate with SPECT MPI risk Allergies Allergen Reaction Date Comments Reported Other allergy 11/18/2017 CRESTOR, LIPITOR, PRAVASTATIN Other allergy 07/13/2019 LIPITOR, CRESTOR, PRAVASTATIN Admission Admission Data Admission Date: 07/13/2019 Admission Time: 6:27 Arrival Date: 07/13/2019 Arrival Time: 0:00 Admit Source: Other Insurance Payor: Medicare [facility] #: [id number] Height (in.): 71 BSA: 1.97 (m2) Height (cm.): 180.34 BMI: 23.84 (kg/m2) Weight (lbs.): 170.95 Weight (kg.): 77.54 Lab Results Lab Result Date: 07/13/2019 Lab Result Time: 0:00 Biochemistry Name Units Result Min Max BUN mg/dl 11.6 --(-*--)-- 7 18 Creatinine mg/dl 1.7 --(----)-* 0.6 1.3 eGFR ml/min 41 *-(----)-- 90 120 NONAFRICAN CBC Name Units Result Min Max Hematocrit % 32.7 *-(----)-- 42 54 Hemoglobin g/dl 10.8 *-(----)-- 13.5 17.5 Procedure Procedure Types Cath Procedure Diagnostic Procedure [facility] w/Coronaries w/Grafts Aortic Root Angiography Sedation Charges Moderate Sedation up to 30 minutes Peripheral Cath Diagnostic Procedure Abd/Extremity Aortagram Procedure Description Procedure Date Procedure Date: 07/13/2019 Procedure Start Time: 8:12 Procedure End Time: 8:43 Procedure Staff Name Function Erickson Yoder MD Performing Physician Cortez Shea RN Nurse Astrid Solis RT Scrub Irene Valerio RT Monitor Indication Chest heaviness and pressure Shortness of breath Procedure Data Cath Procedure Fluoroscopy Diagnostic fluoroscopy Total fluoroscopy Time: time: 10.6 min 10.6 min Diagnostic fluoroscopy Total fluoroscopy dose: 905 dose: 905 mGy mGy Contrast Material Contrast Material Type Amount (ml) Isovue 370 126 Entry Location Entry Primary Successful Side Size Upsize Upsize Entry Closure Succes sful Closure Location (Fr) 1 (Fr) 2 (Fr) Remarks Device Remarks Femoral Right 5 Fr Exoseal artery Estimated blood loss: 5 ml Diagnostic catheters Device Type Used For End Catheter Placement MULTIPACK JL 4.0 5Fr Procedure catheter MULTIPACK 3DRC 5Fr Procedure catheter DIAGNOSTIC LCB 5Fr Procedure catheter ([id number]) DIAGNOSTIC IM 5Fr Procedure catheter ([id number]) MULTIPACK Pigtail 5 Fr Procedure catheter Procedure Complications No complications Procedure Medications Medication Administration Route Dosage 0.9% NaCl I.V. 100 ml/hr Oxygen etCO2 Nasal cannula 2 l/min Heparin Flush Bag added to field 2 bags (1000units/500ml NS) Lidocaine 2% added to field 20 Versed I.V. 1 mg Fentanyl I.V. 50 mcg Versed I.V. 0.5 mg Fentanyl I.V. 25 mcg Fentanyl I.V. 25 mcg Versed I.V. 0.5 mg Hemodynamics Rest BSA: 1.97 (m2) HGB: 10.8 (g/dl) O2 Consumption: Estimated: 220.98 (ml/min) O2 Co nsumption indexed: Estimated:112.17 (ml/min/m) Heart Rate: 65 (bpm) Pressure Samples Time Site Value (mmHg) Purpose Heart Use Rate(bpm) 8:31 LV 183/76,79 Snapshot 68 Snapshots Pre Cath Intra NCS Post Cath Vital Signs Time Heart Resp SPO2 etCO2 NIBP (mmHg) Rhythm Pain Sedation Rate (ipm) (%) (mmHg) Status Level (bpm) 7:58:59 66 20 100 14.1 178/78(136) NSR 0 (11) 10(A) , No pain 8:03:34 63 17 99 8.9 171/66(147) NSR 0 (11) 10(A) , No pain 8:08:07 44 13 99 23.1 161/66(124) NSR 0 (11) 10(A) , No pain 8:12:33 62 14 100 29 157/71(133) NSR 0 (11) 10(A) , No pain 8:16:57 64 10 100 14.1 154/68(130) NSR 0 (11) 9(A) , No pain 8:21:21 64 12 99 34.2 170/72(129) NSR 0 (11) 10(A) , No pain 8:25:47 64 23 99 12.6 164/69(127) NSR 0 (11) 9(A) , No pain 8:30:11 67 13 99 24.5 173/77(136) NSR 0 (11) 9(A) , No pain 8:34:31 66 12 98 35 162/77(123) NSR 0 (11) 10(A) , No pain 8:38:56 52 13 98 35.7 179/78(138) NSR 0 (11) 10(A) , No pain 8:43:24 63 24 99 14.9 167/73(125) NSR 0 (11) 10(A) , No pain Medications Time Medication Route Dose Verified Delivered Reason Notes Effe ctiveness by by 7:58:00 0.9% NaCl I.V. 100 Cortez Cortez Per ml/hr Monse Shea physician RN RN 7:58:09 Oxygen etCO2 2 Cortez Cortez for low 02 Nasal l/min Monse Shea sats cannula RN RN 7:58:19 Heparin Flush added 2 Cortez Cortez used for Bag to bags Monse Shea procedure (1000units/500ml field RN RN NS) 7:58:30 Lidocaine 2% added 20ml Cortez Cortez for local to vial Lorigan Lorigan anesthetic field RN RN 8:02:13 Versed I.V. 1 mg Cortez Cortez for Lorigan Lorigan sedation RN RN 8:02:28 Fentanyl I.V. 50 Cortez Cortez for mcg Lorigan Lorigan sedation RN RN 8:11:40 Versed I.V. 0.5 Cortez Cortez for mg Lorigan Lorigan sedation RN RN 8:11:50 Fentanyl I.V. 25 Cortez Cortez for mcg Lorigan Lorigan sedation RN RN 8:18:24 Fentanyl I.V. 25 Cortez Cortez for mcg Lorigan Lorigan sedation RN RN 8:18:30 Versed I.V. 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 7:29:21 Time tracking: Regular hours (M-F 7:00 - 5:00) 7:29:27 Plan of Care:Hemodynamics will remain stable., Cardiac rhythm will remain stable., Comfort level will be maintained., Respiratory function will remain adequate., Patient/ family verbilizes understanding of procedure., Procedure tolerated without complication., Recovers from procedure without complications.. 7:29:40 H&P Date Dictated: 07/03/2019 Within 30 days and on chart.. 7:29:53 Lab results completed and on chart. 7:29:58 Alarms reviewed by R. N. 7:29:59 Sharps counted by scrub and verified by R.N. 7:30:51 Lab Result : Hemoglobin 10.8 g/dl 7:30:51 Lab Result : Hematocrit 32.7 % 7:35:26 Pre-procedure instructions explained to patient. 7:35:26 Pre-op teaching completed and patient verbalized understanding. 7:40:03 Risk of Mortality: 0.7 7:40:06 Risk of blood transfusion: 1.6 7:40:09 Risk of JERARDO: 3.4 7:40:15 Stress Test: yes; abnormal LATERAL WALL 7:41:20 Lab Result : Creatinine 1.7 mg/dl 7:41:20 Lab Result : eGFR NONAFRICAN 41 ml/min 7:41:20 Lab Result : BUN 11.6 mg/dl 7:41:45 Cortez Shea RN sent for patient. Start room use. 7:51:57 Patient received from Pre/Post Procedure Room to CCL 1 Alert and oriented. Tansferred to table in Supine position. 7:51:58 Warm blankets applied, and sonny hugger turned on for patient comfort. 7:51:58 Correct patient and procedure confirmed by team. 7:51:59 ECG and BP/O2 sat monitors applied to patient. 7:57:41 Vital chart was started 7:57:42 Full Disclosure recording started 7:57:47 Family in waiting room. 7:57:49 Patient NPO since Midnight. 7:57:51 Is the patient allergic to Iodine/contrast media? No. 7:57:53 Was the patient premedicated? N/A 7:57:54 Is patient on blood thinner?Yes 7:57:58 ACC The patient was administered the following blood thiners within the last 24 hours: Eliquis 7:58:00 0.9% NaCl 100 ml/hr I.V. was administered by Cortez Shea RN; Per physician; Verbal order read back and verified. 7:58:02 Patient diabetic? Yes. 7:58:03 If diabetic: On Metformin? No 7:58:05 ----Pre-sedation anethsthesia assessment.---- 7:58:09 Oxygen 2 l/min etCO2 Nasal cannula was administered by Cortez Shea RN; for low 02 sats; Verbal order read back and verified. 7:58:09 Previous problem with sedation/anesthesia? No ? 7:58:10 Snore? Yes 7:58:11 Sleep apnea? No 7:58:12 Deviated septum? No 7:58:13 Opens mouth fully? Yes 7:58:15 Sticks out tongue? Yes 7:58:17 Airway obstruction? No ? 7:58:19 Heparin Flush Bag (1000units/500ml NS) 2 bags added to field was administered by Cortez Shea RN; used for procedure; Verbal order read back and verified. 7:58:24 Dentures? Yes IN TIGHT 7:58:30 Lidocaine 2% 20ml vial added to field was administered by Cortez Shea RN; for local anesthetic; Verbal order read back and verified. 7:58:59 Patient pain scale 0/10 ?. 7:59:10 IV patent on arrival in left antecubital with 0.9% NaCl at O. 7:59:15 Right groin area was prepped with chlora-prep and draped in sterile fashion 7:59:21 Use device set Femoral Dx 7:59:22 ACIST Syringe (19358) opened to sterile field. 7:59:23 Bag Decanter (2002S) opened to sterile field. 7:59:24 Medline Cath Pack ([id number]) opened to sterile field. 7:59:25 ACIST Hand Control (12451) opened to sterile field. 7:59:25 ACIST Manifold (43804) opened to sterile field. 7:59:26 DIAGNOSTIC Multipack 5Fr catheter set ([id number]) opened to sterile field. 7:59:29 SHEATH 5FR Bledsoe (MXT889) opened to sterile field. 7:59:30 EMERALD Guide Wire (167-096) opened to sterile field. 7:59:36 Baseline sample Acquired. 7:59:40 Rhythm: sinus rhythm 7:59:43 --------ALL STOP TIME OUT------ 7:59:44 Final Timeout: patient, procedure, and site verified with staff and physician. All members of the team are in agreement. 7:59:46 Right groin site verified by team. 7:59:52 Fire Safety Assessment: A--An alcohol-based skin anteseptic being used preoperatively., C--Open oxygen or nitrous oxide is being used., D--An ESU, laser, or fiber-optic light is being used. 7:59:58 Physical assessment completed. ASA score P 2 - A patient with mild systemic disease as per Eirckson Yoder MD. 8:00:02 3b) 30-44 Moderately reduced kidney function. 8:00:06 Maximum allowable contrast dose (3.7 X eGFR X 0.75)114 ml. 8:00:10 Sedation plan: IV Moderate Sedation Medication:Versed, Fentanyl 8:02:13 Versed 1 mg I.V. was administered by Cortez Shea RN; for sedation; Verbal order read back and verified. 8:02:28 Fentanyl 50 mcg I.V. was administered by Cortez Shea RN; for sedation; Verbal order read back and verified. 8:05:51 Indication : Chest heaviness and pressure 8:05:59 Indication : Shortness of breath 8:10:15 Procedure started. 8:11:40 Versed 0.5 mg I.V. was administered by Cortez Shea RN; for sedation; Verbal order read back and verified. 8:11:50 Fentanyl 25 mcg I.V. was administered by Cortez Shea RN; for sedation; Verbal order read back and verified. 8:12:24 Local anesthetic to right femoral artery with Lidocaine 2% by Erickson Yoder MD.INITIAL ACCESS ONLY 8:12:33 A 5 Fr sheath was inserted into the Right Femoral artery 8:13:00 A MULTIPACK JL 4.0 5Fr catheter was advanced over the wire and used for Procedure. 8:14:42 LCA angiography performed. 8:14:45 Injector settings: Ml/sec: 3, Volume: 6, 8:15:42 Catheter exchanged over wire. 8:16:42 A MULTIPACK 3DRC 5Fr catheter was advanced over the wire and used for Procedure. 8:18:03 RCA angiography performed. 8:18:07 Injector settings: Ml/sec: 3, Volume: 6, 8:18:17 ACCDominant side:Right 8:18:24 Fentanyl 25 mcg I.V. was administered by Cortez Shea RN; for sedation; Verbal order read back and verified. 8:18:30 Versed 0.5 mg I.V. was administered by Cortez Shea RN; for sedation; Verbal order read back and verified. 8:19:17 Catheter exchanged over wire. 8:20:18 A DIAGNOSTIC LCB 5Fr catheter ([id number]) was advanced over the wire and used for Procedure. 8:22:18 Catheter exchanged over wire. 8:22:36 UNABLE TO CANNULATE GRAFTS TO THE RT. 8:23:11 A DIAGNOSTIC IM 5Fr catheter ([id number]) was advanced over the wire and used for Procedure. 8:26:33 GLIDE WIRE .038 180cm ANGLED ([id number]) opened to sterile field. 8:26:56 GLIDEWIRE USED TO BETTER CANNULATE THE ALVES. 8:28:11 ALVES to LAD angiography performed. 8:30:08 Catheter exchanged over wire. 8:30:37 A MULTIPACK Pigtail 5 Fr catheter was advanced over the wire and used for Procedure. 8:31:09 LV gram done using FERNANDO 8:32:12 Aortic Root visualized 8:32:21 Injector settings: Ml/sec: 10, Volume: 20, 8:33:21 Abdominal Aortagram was performed. 8:36:59 EXOSEAL 5Fr (EX500) opened to sterile field. 8:37:10 Sheath removed intact; hemostasis achieved with Exoseal to the Right Femoral artery. 8:37:49 Procedure ended.(Physican Out) 8:38:49 Fluoroscopy time 10.60 minutes. 8:38:53 Flurop Dose total: 905 8:38:53 Fluoroscopy dose: 905 mGy 8:38:58 Dose Area Product 11406 mGy/cm. 8:39:04 Contrast amount:Isovue 370 126ml. 8:39:06 Maximum allowable dose exceeded? Yes. 8:39:07 Sharps counted by scrub and verified by R.N. 8:39:14 Post-op/insertion site Right Femoral artery dressed using a 4 x 4 and Tegaderm. 8:39:19 Post right femoral artery:stable, soft, clean and dry 8:39:21 Post Procedure Pulses reassessed and unchanged 8:39:26 Post-procedure physical assessment completed. ASA score P 2 - A patient with mild systemic disease as per Erickson Yoder MD. 8:39:29 Post procedure rhythm: unchanged. 8:39:32 Estimated blood loss: 5 ml 8:39:34 Post procedure instruction explained to patient.Patient verbalizes understanding. 8:39:35 Patient needs reinforcement of post procedure teaching. 8:40:45 Procedure type changed to Cath procedure, Diagnostic procedure, LHC, LHC w/Coronaries w/Grafts, Aortic Root Angiography, Sedation Charges, Moderate Sedation up to 30 minutes, Peripheral Cath Diagnostic Procedure, Abd/Extremity, Aortagram 8:43:20 Procedure and supply charges have been captured, reviewed, submitted and are correct. 8:43:24 Procedure Complication : No complications 8:43:26 Vital chart was stopped 8:43:30 [facility] Findings: mild to moderate CAD (<70%) 8:43:34 Operative report dictated upon procedure completion. 8:43:35 See physician's report for complete and final results. 8:43:38 Report given to Pre/Post Procedure Room. 8:43:41 Patient transfered to Pre/Post Procedure Room with Stretcher. 8:43:43 Procedure ended. 8:43:43 Full Disclosure recording stopped 8:43:47 End room use (Document Last) 8:43:57 End room use (Document Last) 8:44:15 End room use (Document Last) Device Usage Item Name Manufacture Quantity Catalog Hospital Part Current Minimal L ot# / Number Charge Number Stock Stock Serial# Code ACIST Acist 1 27705 080048 297820 240901 20 Syringe Medical (78137) Systems Inc Bag Microtek 1 2001S 015449 77724 654085 5 Decanter Medical Inc. () Medline Medline 1 [id number] 297840 27457 816076 5 Cath Pack ([id number]) ACIST Hand Acist 1 42449 454702 902737 437375 5 Control Medical (56358) Systems Inc ACIST Acist 1 13376 118863 558173 534774 5 Manifold Medical (02568) Systems Inc DIAGNOSTIC Cardinal 1 [id number] 896222 04632 986747 30 Multipack Health 5Fr catheter set (RH6085) SHEATH 5FR Terumo 1 TGZ723 683219 647064 949349 5 Bledsoe (FZT734) EMERALD Cardinal 1 502-455 861182 219404 609759 5 Guide Wire Health (502-455) MULTIPACK Cardinal 1 900883 5 JL 4.0 5Fr Health catheter MULTIPACK Cardinal 1 478977 5 3DRC 5Fr Health catheter DIAGNOSTIC Cardinal 1 [id number] 002442 549100 486057 5 LCB 5Fr Health catheter (552739H) DIAGNOSTIC Cardinal 1 [id number] 395626 068827 336264 5 IM 5Fr Health catheter (064723H) GLIDE WIRE Terumo 1 KS7196 217855 567600 5 .038 180cm ANGLED (MH9827) MULTIPACK Cardinal 1 806860 5 Pigtail 5 Health Fr catheter EXOSEAL 5Fr Cardinal 1 EX500 481493 486923 835265 10 (EX500) Health Signature Audit [place] Stage Time Signature Unsigned Intra-Procedure 07/13/2019 Irene Valerio 8:43:57 AM RT(R) Intra-Procedure 07/13/2019 Cortez 8:44:15 AM Monse SHOOK Intra-Procedure 07/13/2019 Erickson Yoder MD 8:44:[address] [address]
[2019-07-13] MEDS ORDERED: LEUCOVORIN CALCI5 MG PO (06:47)
[2019-07-13] MEDS ORDERED: BETAPACE 80 MG80 MG PO (06:48)
[2019-07-13 07:07] VITALS: BP 179/64; Ht 180.3 cm; Wt 77.5 kg
[2019-07-13 07:16] LABS: BASOPHILS 0.2 % (0-2); EOSINOPHILS 2.4 % (0-7); HEMATOCRIT 32.7 % (42.0-54.0); HEMOGLOBIN 10.8 g/dL (13.5-17.5); IMMATURE GRANULOCYTES 0.2 % (0-5); LYMPHOCYTES 19.5 % (15-50); MCH 32.8 pg (26.0-34.0); MCV 99.4 fL (80.0-100.0); MEAN PLATELET VOLUME 11.3 fL (7.4-10.4); MONOCYTES 8.8 % (2-11); NEUTROPHILS 68.9 % (40-80); RBC 3.29 10x6/uL (4.20-6.10); RDW 13.5 % (11.5-14.5); WBC 5.3 10x3/uL (4.8-10.8)
[2019-07-13 07:19] LABS: PLATELET COUNT 178 10x3/uL (130-400)
[2019-07-13 07:34] LABS: ANION GAP 11.6 mmol/L (8-16); CALCIUM 9.1 mg/dL (8.5-10.1); CARBON DIOXIDE 26.5 mmol/L (21.0-32.0); CHOL - HDL RATIO 4.5 ratio (2.3-4.9); CREATININE - SERUM 1.7 mg/dL (0.6-1.3); LDL-HDL RATIO 2.9 ratio (1.5-3.5); POTASSIUM - SERUM 4.1 mmol/L (3.5-5.1)
--- NOTE | 2019-07-13 08:59 | NUR ---
REC TO ROOM VIA STRETCHER FROM CANE LOADER. MONITORING INITIATED. R GROIN W TEGADERM, 4X4 CDI. SOFT. NO S/S BLEEDING OR HEMATOMA. BP 159/63, HR NSR 61, RR 14, SAT 96% ON RA. AT BEDSIDE. INSTRUCTED ON KEEPING HEAD ON PILLOW AND RLE STRAIGHT AND STILL FOR ONE HOUR. VERBALIZED UNDERSTANDING.
--- NOTE | 2019-07-13 09:19 | NUR ---
R GROIN REMAINS SOFT, NO S/S BLEEDING OR HEMATOMA. BP 135/52, SB 56, RR 14, SAT 98% RA.
--- NOTE | 2019-07-13 09:45 | NUR ---
R GROIN CDI, SOFT. NO S/S BLEEDING OR HEMATOMA. HOB RAISED TO PT COMFORT, COFFEE PROVIDED PER REQUEST. BP 147/52, SB 59, SAT 98% RA. AT BEDSIDE.
--- NOTE | 2019-07-13 10:15 | NUR ---
R GROIN REMAINS SOFT, NO S/S BLEEDING OR HEMATOMA. EATING SANDWICH, DRINKING ICE WATER. BP 145/55, NSR 65, RR 18
--- NOTE | 2019-07-13 10:37 | NUR ---
DR MENDIETA IN TO SPEAK W PT/. NO NEW MEDICATIONS. KEEP F/U NEXT WEEK SCHEDULED. R GROIN SOFT, NO S/S BLEEDING OR HEMATOMA. IV REMOVED, TIP INTACT. MONITORING DC. PT DRESSING W ASSIST OF .
--- NOTE | 2019-07-13 10:53 | NUR ---
DC INSTRUCTIONS REVIEWED W PT AND . VERBALIZED UNDERSTANDING. DC HOME VIA WHEELCHAIR TO PRIVATE VEHICLE. PT HAS ALL BELONGINGS.
== END 2019-07-13 10:55 | disposition home or self-care (01) ==
LOC: D.CATH 06:27
PROVIDERS: ATTEND Internal Medicine Cardiovascular Disease
DX: I20.9 Angina pectoris, unspecified (principal); R94.30 Abnormal result of cardiovascular function study, unspecified; I10 Essential (primary) hypertension; I48.91 Unspecified atrial fibrillation; R07.9 Chest pain, unspecified; I49.9 Cardiac arrhythmia, unspecified; I73.9 Peripheral vascular disease, unspecified; E78.5 Hyperlipidemia, unspecified

== ENCOUNTER → 2019-07-24 07:53 | Outpatient (CLI) | payer MEDICARE, OTHER ==
[2019-07-13 07:07] VITALS: BMI 23.8
[~2019-07-24 07:53] MED LIST changes: +BETAPACE 80 MG80 MG PO; +LEUCOVORIN CALCI5 MG PO
== END | disposition home or self-care (01) ==
LOC: D.CT 07:53
PROVIDERS: ATTEND Internal Medicine Cardiovascular Disease
DX: I71.4 Abdominal aortic aneurysm, without rupture (principal)

== ENCOUNTER → 2019-10-11 10:58 | Outpatient (CLI) | payer MEDICARE, OTHER ==
[2019-07-13 07:07] VITALS: BMI 23.8
== END | disposition home or self-care (01) ==
LOC: D.HCCECHO 10:58
PROVIDERS: ATTEND Internal Medicine Cardiovascular Disease
DX: I25.10 Atherosclerotic heart disease of native coronary artery without angina pectoris (principal)